=== PATIENT | female | born 1965 | race Caucasian/White ===

== ENCOUNTER 2020-08-25 08:11 | Outpatient (REF) | payer OTHER, SELFPAY ==
[2020-08-25 09:16] LABS: MANUAL DIFF FLAG NO
[2020-08-25 09:19] LABS: Basophils Percent Auto 0.7 % (0-2); Eosinophils Percent Auto 0.7 % (0-4); Hematocrit 37.2 % (37-47); Hemoglobin 12.6 g/dl (12.0-16.0); Imm Gran Abs Auto 0.01 X10*3/uL (0.00-0.03); Imm Gran Pct Auto 0.2 % (0.0-0.4); Lymphocytes Absolute Auto 1.2 X10*3/uL (1.2-4.9); Lymphocytes Percent Auto 29.2 % (20-40); Mean Corpuscular HGB Conc 33.9 g/dl (31.0-35.0); Mean Corpuscular Volume 94.4 fL (80-98); Mean Platelet Volume 10.9 fL (9.4-12.3); Monocytes Absolute Auto 0.3 X10*3/uL (0.1-1.2); Monocytes Percent Auto 7.9 % (2-11); Neutrophils Absolute Auto 2.5 X10*3/uL (2.0-8.3); Neutrophils Percent Auto 61.3 % (45-73); Platelet Count 208 X10*3/uL (160-400); Red Blood Count 3.94 X10*6/uL (4.20-5.50); Red Cell Distribution Width 12.2 % (11.0-16.0); White Blood Count 4.1 X10*3/uL (4.8-10.8)
[2020-08-25 09:20] LABS: Glucose Urine UA NEG (NEG); Leukocyte Esterase Urine NEG (NEG); Nitrite Urine NEG (NEG); Specific Gravity - Urine <= 1.005 (1.005-1.025); Urine Blood TRACE (NEG); Urine Ketones NEG (NEG); Urine Protein NEG (NEG-TRACE)
[2020-08-25 09:24] LABS: Appearance Urine CLEAR; Color Urine YELLOW
[2020-08-25 09:26] LABS: RBC Urine 0-2 /HPF (0); Squamous Epithelial Cell Urine TRACE /LPF; WBC Urine 0 /HPF (0-4)
[2020-08-25 09:46] LABS: Alanine Aminotransferase 18 U/L (0-31); Albumin Level 4.5 g/dL (3.5-5.0); Alkaline Phosphatase 101 U/L (39-117); Anion Gap 13 (12-20); Aspartate Amino Transferase 20 U/L (5-31); Bilirubin Total 0.6 mg/dL (0.0-1.0); Blood Urea Nitrogen 17 mg/dL (9-16); C Reactive Protein 0.08 mg/dL (< or = 0.50); Calcium 9.3 mg/dL (8.4-10.2); Carbon Dioxide 26 mmol/L (22-29); Chloride 104 mmol/L (96-108); Estimated Glomerular Filt Rate > 60; Glucose Random 92 mg/dL (60-115); Potassium 4.1 mmol/l (3.3-5.1); Sodium 139 mmol/L (135-145); Total Protein 7.1 g/dL (6.5-8.0)
[2020-08-25 10:17] LABS: Erythrocyte Sedimentation Rate 5 MM/HR (0-20)
[2020-08-26 12:02] LABS: Complement C3 41 mg/dL (83-193)
[2020-08-26 12:26] LABS: Anti DNA DS Antibody 7 IU/mL
== END 2020-08-25 08:12 | disposition home or self-care (01) ==
LOC: HO.LAB 08:11
PROVIDERS: PCP Family Medicine; Visit Provider Student in an Organized Health Care Education/Training Program
DX: R76.8 Other specified abnormal immunological findings in serum (principal)
CPT/HCPCS: 36415; 80053; 81001; 85025; 85652; 86140; 86160; 86225

== ENCOUNTER 2020-10-12 15:16 | Outpatient (REF) | payer OTHER, SELFPAY ==
--- NOTE | ~2020-10-12 | XR_ITS ---
EXAMINATION: Bilateral knee. CLINICAL INFORMATION: Pain. History of SLE COMPARISON: None TECHNIQUE: 3 views each knee. FINDINGS: Right knee: The tricompartment joint space is minimally reduced. There are small anterior superior patellar enthesophyte. There are no loose bodies or bony erosive changes. No abnormal joint effusion seen. Left knee: There is small anterior superior patellar enthesophyte. Minimal reduction in tricompartment joint space is seen. No loose bodies, bony erosive changes or joint effusion seen. 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 There is a small anterior superior patellar enthesophyte bilaterally
--- NOTE | ~2020-10-12 | XR_ITS ---
EXAMINATION: Bilateral knee. CLINICAL INFORMATION: Pain. History of SLE COMPARISON: None TECHNIQUE: 3 views each knee. FINDINGS: Right knee: The tricompartment joint space is minimally reduced. There are small anterior superior patellar enthesophyte. There are no loose bodies or bony erosive changes. No abnormal joint effusion seen. Left knee: There is small anterior superior patellar enthesophyte. Minimal reduction in tricompartment joint space is seen. No loose bodies, bony erosive changes or joint effusion seen. 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 There is a small anterior superior patellar enthesophyte bilaterally
== END 2020-10-12 15:17 | disposition home or self-care (01) ==
LOC: HO.XRAY 15:16
PROVIDERS: PCP Family Medicine; Visit Provider Student in an Organized Health Care Education/Training Program
DX: M32.9 Systemic lupus erythematosus, unspecified (principal)
CPT/HCPCS: 73562

== ENCOUNTER 2020-10-27 15:51 | Outpatient (REF) | payer OTHER, SELFPAY ==
[2020-10-27 17:36] LABS: Erythrocyte Sedimentation Rate 6 MM/HR (0-20)
[2020-10-27 17:46] LABS: Thyroid Stimulating Hormone 2.38 uIU/mL (0.32-4.0)
[2020-10-28 06:11] LABS: Lyme Abs Screen <0.90 index
[2020-11-01 06:01] LABS: Aldolase 4.5 U/L (<=8.1)
== END 2020-10-27 15:52 | disposition home or self-care (01) ==
LOC: HO.LAB 15:51
PROVIDERS: PCP Family Medicine; Visit Provider Psychiatry & Neurology Neurology
DX: M32.9 Systemic lupus erythematosus, unspecified (principal)
CPT/HCPCS: 36415; 82085; 82550; 84443; 85652; 86618

== ENCOUNTER 2021-01-10 06:44 | Outpatient (REF) | payer OTHER, SELFPAY ==
[2021-01-10 07:48] LABS: MANUAL DIFF FLAG NO
[2021-01-10 07:53] LABS: Glucose Urine UA NEG (NEG); Leukocyte Esterase Urine NEG (NEG); Nitrite Urine NEG (NEG); PH 5.5 (5.0-8.0); Specific Gravity - Urine >= 1.030 (1.005-1.025); Urine Blood TRACE (NEG); Urine Ketones NEG (NEG); Urine Protein NEG (NEG-TRACE)
[2021-01-10 07:57] LABS: Basophils Percent Auto 1.1 % (0-2); Eosinophils Absolute Auto 0.1 X10*3/uL (0.0-0.4); Eosinophils Percent Auto 1.6 % (0-4); Hematocrit 39.3 % (37-47); Lymphocytes Absolute Auto 1.6 X10*3/uL (1.2-4.9); Lymphocytes Percent Auto 41.9 % (20-40); Mean Corpuscular HGB Conc 33.1 g/dl (31.0-35.0); Mean Corpuscular Hemoglobin 31.6 pg (27.0-33.0); Mean Corpuscular Volume 95.6 fL (80-98); Mean Platelet Volume 10.5 fL (9.4-12.3); Monocytes Absolute Auto 0.3 X10*3/uL (0.1-1.2); Monocytes Percent Auto 8.1 % (2-11); Neutrophils Absolute Auto 1.8 X10*3/uL (2.0-8.3); Neutrophils Percent Auto 47.3 % (45-73); Platelet Count 242 X10*3/uL (160-400); Red Blood Count 4.11 X10*6/uL (4.20-5.50); Red Cell Distribution Width 12.1 % (11.0-16.0); White Blood Count 3.7 X10*3/uL (4.8-10.8)
[2021-01-10 08:08] LABS: Appearance Urine CLEAR; Color Urine YELLOW
[2021-01-10 08:09] LABS: Mucus Urine 1+ /LPF; Squamous Epithelial Cell Urine 1+ /LPF; WBC Urine 0 /HPF (0-4)
[2021-01-10 08:12] LABS: Alanine Aminotransferase 29 U/L (0-31); Albumin Level 4.4 g/dL (3.5-5.0); Alkaline Phosphatase 101 U/L (39-117); Anion Gap 12 (12-20); Aspartate Amino Transferase 28 U/L (5-31); Bilirubin Total 0.9 mg/dL (0.0-1.0); Blood Urea Nitrogen 12 mg/dL (9-16); C Reactive Protein 0.05 mg/dL (< or = 0.50); Calcium 9.8 mg/dL (8.4-10.2); Carbon Dioxide 29 mmol/L (22-29); Chloride 107 mmol/L (96-108); Estimated Glomerular Filt Rate > 60; Glucose Random 86 mg/dL (60-115); Potassium 4.6 mmol/L (3.3-5.1); Sodium 143 mmol/L (135-145); Total Protein 6.9 g/dL (6.5-8.0)
[2021-01-10 08:33] LABS: Erythrocyte Sedimentation Rate 5 MM/HR (0-20)
[2021-01-11 14:52] LABS: Complement C3 78 mg/dL (83-193)
[2021-01-13 14:17] LABS: Anti DNA DS Antibody 7 IU/mL
== END 2021-01-10 06:45 | disposition home or self-care (01) ==
LOC: HO.LAB 06:44
PROVIDERS: PCP Family Medicine; Visit Provider Student in an Organized Health Care Education/Training Program
DX: M32.9 Systemic lupus erythematosus, unspecified (principal)
CPT/HCPCS: 36415; 80053; 81001; 85025; 85652; 86140; 86160; 86225

== ENCOUNTER → 2021-01-18 07:56 | Outpatient (BNVA) | payer OTHER, SELFPAY | PROVIDERS: PCP Family Medicine; Visit Provider Student in an Organized Health Care Education/Training Program ==

== ENCOUNTER 2021-01-26 12:36 | Outpatient (REF) | payer OTHER, SELFPAY ==
[2021-01-26 14:51] LABS: Folate 15.9 ng/mL (> or = 4.0); Vitamin B12 245 pg/mL (200-900)
[2021-01-30 16:02] LABS: Vitamin D 25-OH, D2 <4 ng/mL; Vitamin D 25-OH, D3 25 ng/mL; Vitamin D 25-OH, Total 25 ng/mL (30-100)
== END 2021-01-26 12:37 | disposition home or self-care (01) ==
LOC: HO.LAB 12:36
PROVIDERS: PCP Family Medicine; Visit Provider Psychiatry & Neurology Neurology
DX: G43.909 Migraine, unspecified, not intractable, without status migrainosus (principal)
CPT/HCPCS: 36415; 82306; 82607; 82746

== ENCOUNTER → 2021-02-21 15:55 | Outpatient (REF) | payer OTHER, SELFPAY | LOC: HO.SL 15:55 | PROVIDERS: PCP Family Medicine; Visit Provider Psychiatry & Neurology Neurology | DX: G47.30 Sleep apnea, unspecified (principal) | CPT/HCPCS: 95806 ==

== ENCOUNTER → 2021-04-07 12:50 | Outpatient (REF) | payer OTHER, MEDICAID, SELFPAY ==
--- NOTE | 2021-04-07 12:54 | ECG_ITS ---
Hook-up date: 2021-04-07 13:05:00 Duration: 25:51:00 Test Indications: syncope Medications: [id number] QRS complexes 9 Ventricular ectopics which represent <1 % of total QRS comp. 65 Supraventricular ectopics which represent <1 % of total QRS comp. * Paced QRS complexs which represent % of total QRS comp. VENTRICULAR ECTOPY 9 Isolated 0 Bigeminal Cycles 0 Couplets 0 Runs 0 Beats in Runs * Beats LONGEST at * BPM at :: -- * Beats FASTEST at * BPM at :: -- SUPRAVENTRICULAR ECTOPY 65 Isolated 0 Couplets 0 Runs 0 Beats in Runs * Beats LONGEST at * BPM at :: -- * Beats FASTEST at * BPM at :: -- HEART RATES 54 MIN at 06:15:59 2021-04-08 76 AVG 125 MAX at 14:17:52 2021-04-07 LONGEST RR 1.1120 secs at 07:16:54 2021-04-08 S-T LEVELS Channel 1 - 128 mm at 13:05:00 2021-04-07 - 128 mm at 13:05:00 2021-04-07 Channel 2 - 128 mm at 13:05:00 2021-04-07 - 128 mm at 13:05:00 2021-04-07 Channel 3 - 128 mm at 03:22:41 -- - 128 mm at 03:22:41 Basic rhythm Normal sinus rhythm No long pause or profound bradycardia Rare Premature atrial complexes Patient reproted dizziness correlated with NSR Referred By: Stephon Fierro Overread By: ELVA OBRIEN MD
== END ==
LOC: HO.CARD 12:50
PROVIDERS: Visit Provider Psychiatry & Neurology Neurology
DX: R55 Syncope and collapse (principal)
CPT/HCPCS: 93225; 93226

== ENCOUNTER 2021-06-20 13:50 | Outpatient (REF) | payer OTHER, MEDICAID, SELFPAY ==
[2021-06-20 15:34] LABS: Erythrocyte Sedimentation Rate 7 MM/HR (0-20)
[2021-06-24 14:22] LABS: Vitamin D 25-OH, D2 56 ng/mL; Vitamin D 25-OH, D3 14 ng/mL; Vitamin D 25-OH, Total 70 ng/mL (30-100)
== END 2021-06-20 13:51 | disposition home or self-care (01) ==
LOC: HO.LAB 13:50
PROVIDERS: PCP Family Medicine; Visit Provider Psychiatry & Neurology Neurology
DX: G44.209 Tension-type headache, unspecified, not intractable (principal)
CPT/HCPCS: 36415; 82306; 82550; 85652

== ENCOUNTER 2022-01-23 21:24 | Observation (INO) | payer OTHER, MEDICAID, SELFPAY ==
--- NOTE | ~2022-01-23 | CT_ITS ---
EXAMINATION: NONCONTRAST HEAD CT NONCONTRAST CERVICAL SPINE CT INDICATION INFORMATION: Syncope. Hit head. Trauma. COMPARISON: 11/18/2020 TECHNIQUE: Separate noncontrast CT examinations of the head and cervical spine were performed. Coronal and sagittal images were created for each examination at the technologist workstation. This CT examination was performed using dose optimization techniques as appropriate, variously including the following: *Automated exposure control *Adjustment of mA and/or kV according to patient size (this includes techniques or standardized protocols for targeted exams where dose is matched to indication/reason for exam; i.e. extremities or head) *Use of iterative reconstruction technique DLP: 941 mGy-cm FINDINGS: Head: There is no evidence of acute intracranial hemorrhage or territorial infarction. No abnormal mass effect or midline shift is seen. Barney to white matter differentiation is well preserved. No extra-axial fluid collections are identified. No hydrocephalus. No significant volume loss. There is no abnormal attenuation within the brain parenchyma. No acute osseous or soft tissue abnormality. The mastoid air cells and visualized portions of the paranasal sinuses are well aerated. Cervical spine: There is anatomic alignment of the vertebral bodies and posterior elements. The atlantoaxial and atlantooccipital articulations are intact. Vertebral body heights and intervertebral disc spaces are maintained. Right-sided facet fusion at C2-C3. Mild facet arthropathy throughout. No evidence of acute fracture. No prevertebral soft tissue swelling. Visualized portions of the lung apices are unremarkable. The thyroid gland is unremarkable. CT/CT cervical spine wo con IMPRESSION: 1. No acute intracranial finding. 2. No fracture or malalignment of the cervical spine.
--- NOTE | ~2022-01-23 | CT_ITS ---
EXAMINATION: NONCONTRAST HEAD CT NONCONTRAST CERVICAL SPINE CT INDICATION INFORMATION: Syncope. Hit head. Trauma. COMPARISON: 11/18/2020 TECHNIQUE: Separate noncontrast CT examinations of the head and cervical spine were performed. Coronal and sagittal images were created for each examination at the technologist workstation. This CT examination was performed using dose optimization techniques as appropriate, variously including the following: *Automated exposure control *Adjustment of mA and/or kV according to patient size (this includes techniques or standardized protocols for targeted exams where dose is matched to indication/reason for exam; i.e. extremities or head) *Use of iterative reconstruction technique DLP: 941 mGy-cm FINDINGS: Head: There is no evidence of acute intracranial hemorrhage or territorial infarction. No abnormal mass effect or midline shift is seen. Barney to white matter differentiation is well preserved. No extra-axial fluid collections are identified. No hydrocephalus. No significant volume loss. There is no abnormal attenuation within the brain parenchyma. No acute osseous or soft tissue abnormality. The mastoid air cells and visualized portions of the paranasal sinuses are well aerated. Cervical spine: There is anatomic alignment of the vertebral bodies and posterior elements. The atlantoaxial and atlantooccipital articulations are intact. Vertebral body heights and intervertebral disc spaces are maintained. Right-sided facet fusion at C2-C3. Mild facet arthropathy throughout. No evidence of acute fracture. No prevertebral soft tissue swelling. Visualized portions of the lung apices are unremarkable. The thyroid gland is unremarkable. CT/CT head/brain wo con IMPRESSION: 1. No acute intracranial finding. 2. No fracture or malalignment of the cervical spine.
--- NOTE | ~2022-01-23 | US_ITS ---
EXAMINATION: US EXTRACRANIAL CAROTID DUPLEX, BILATERAL CLINICAL INFORMATION: Syncope COMPARISON: None TECHNIQUE: Real-time ultrasound and Doppler techniques (integrating B-mode 2-D vascular images, Doppler spectral analysis and color-flow Doppler imaging) were utilized to interrogate the extracranial carotid arteries, the vertebral arteries and proximal subclavian arteries bilaterally. The degree of stenosis is determined by criteria similar to NASCET. FINDINGS: Right Side: 1. There is no significant atherosclerotic plaque seen in the bifurcation/proximal ICA region. 2. The common carotid artery PSV proximally is 84.1 cm/s and distally 72.7 cm/s. 3. The proximal internal carotid artery velocities are 70.6 cm/s systolic and 26.7 cm/s diastolic. 4. The proximal external carotid artery PSV is 56.6 cm/s. 5. The vertebral artery shows antegrade flow. 6. The subclavian artery waveforms are normal. Left Side: 1. There is no significant atherosclerotic plaque seen in the bifurcation/proximal ICA region. 2. The common carotid artery PSV proximally is 89.2 cm/s and distally 77.0 cm/s. 3. The proximal internal carotid artery velocities are 75.0 cm/s systolic and 24.0 cm/s diastolic. 4. The proximal external carotid artery PSV is 52.6 cm/s. 5. The vertebral artery shows antegrade flow. 6. The subclavian artery waveforms are normal. US/US carotid duplex BI IMPRESSION: 1. RIGHT: Normal right internal carotid artery without atherosclerotic plaque or hemodynamically significant stenosis. 2. LEFT: Normal left internal carotid artery without atherosclerotic plaque or hemodynamically significant stenosis.
[2022-01-23 21:31] VITALS: BP 110/60; PULSE 70; RESP 16; TEMP 36.8; O2SAT 99; BMI 21.7
--- NOTE | 2022-01-23 21:46 | ECG_ITS ---
Test Reason : chest pressure Blood Pressure : / mmHG Vent. Rate : 065 BPM Atrial Rate : 065 BPM P-R Int : 180 ms QRS Dur : 106 ms QT Int : 404 ms P-R-T Axes : 068 090 038 degrees QTc Int : 420 ms Normal sinus rhythm Rightward axis Low voltage QRS Borderline ECG No previous ECGs available Referred By: Everette Chance Electronically Signed By:YANI WILHELM
[2022-01-23 21:56] VITALS: BP 110/60; O2SAT 98
[2022-01-23] MEDS: Acetaminophen 325 MG TABLET 650 MG PO (23:21)
[2022-01-23] MEDS: Ondansetron ODT 4 MG TAB.RAPDIS TRANSLINGU (23:22)
[2022-01-24] VITALS (9 sets, daily range): BP systolic 107–135; BP diastolic 57–74; PULSE 55–64; RESP 14–18; TEMP 36.7–37.2; O2SAT 98–100
[2022-01-24 00:05] LABS: MANUAL DIFF FLAG NO
[2022-01-24 00:06] LABS: Basophils Absolute Auto 0.1 X10*3/uL (0.0-0.2); Basophils Percent Auto 0.9 % (0-2); Eosinophils Absolute Auto 0.1 X10*3/uL (0.0-0.4); Eosinophils Percent Auto 0.9 % (0-4); Hematocrit 33.5 % (37.0-47.0); Hemoglobin 11.5 g/dl (12.0-16.0); Imm Gran Abs Auto 0.01 X10*3/uL (0.00-0.03); Imm Gran Pct Auto 0.2 % (0.0-0.4); Lymphocytes Absolute Auto 2.4 X10*3/uL (1.2-4.9); Lymphocytes Percent Auto 45.5 % (20-40); Mean Corpuscular HGB Conc 34.3 g/dl (31.0-35.0); Mean Corpuscular Hemoglobin 32.7 pg (27.0-33.0); Mean Corpuscular Volume 95.2 fL (80.0-98.0); Mean Platelet Volume 10.6 fL (9.4-12.3); Monocytes Absolute Auto 0.4 X10*3/uL (0.1-1.2); Monocytes Percent Auto 6.6 % (2-11); Neutrophils Absolute Auto 2.4 x10*3/uL (2.0-8.3); Neutrophils Percent Auto 45.9 % (45-73); Platelet Count 198 X10*3/uL (160-400); Red Blood Count 3.52 X10*6/uL (4.20-5.50); Red Cell Distribution Width 12.2 % (11.0-16.0); White Blood Count 5.3 X10*3/uL (4.8-10.8)
[2022-01-24 00:32] LABS: Troponin-I High Sensitivity 6.9 ng/L (<3.5-17.0)
[2022-01-24 00:34] LABS: Alanine Aminotransferase 14 U/L (0-31); Albumin Level 4.2 g/dL (3.5-5.0); Alkaline Phosphatase 107 U/L (39-117); Anion Gap 14 (12-20); Aspartate Amino Transferase 20 U/L (5-31); Bilirubin Total 0.6 mg/dL (0.0-1.0); Carbon Dioxide 20 mmol/L (22-29); Chloride 109 mmol/L (96-108); Creatinine Clr Calc Pharmacy 70.8; Estimated Glomerular Filt Rate > 60; Glucose Random 95 mg/dL (60-115); Potassium 3.5 mmol/L (3.3-5.1); Sodium 139 mmol/L (135-145); Total Protein 6.7 g/dL (6.5-8.0)
[2022-01-24 00:48] LABS: Blood Urea Nitrogen 21 mg/dL (9-16)
--- NOTE | 2022-01-24 01:42 | ED.SYNCOPE ---
HPI - Syncope General Chief Complaint: Syncope Stated Complaint: SYNCOPE Time Seen by Provider: 01/24/22 01:42 Source: patient Mode of arrival: ambulatory Limitations: no limitations History of Present Illness HPI narrative: patient has had frequent episodes of syncope since COVID, too numerous. [facility] Family states she was out for 12 seconds. 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 She is complaining of neck and back pain. patient was complaining of some chest pain and shortness of breath MD complaint: loss of consciousness Onset (ago): hour(s) Prodromal symptoms: lightheaded Related Data Home Medications Medication Instructions Recorded Confirmed albuterol sulfate 90 mcg/actuation 2 puff inhalation Q6H PRN Dyspnea 08/25/20 01/23/22 aerosol inhaler ipratropium 0.5 mg-albuterol 3 mg 3 ml inhalation Q6-8H PRN Dyspnea 08/25/20 01/24/22 (2.5 mg base)/3 mL nebulization soln vcodjux-ikpguswxisjqj-wizxeerx 250 2 tab PO Q6H PRN Dyspnea 10/12/20 01/23/22 mg-250 mg-65 mg tablet (Excedrin Extra Strength) omega-3 fatty acids 1,000 mg 1,000 mg PO DAILY 10/12/20 01/24/22 capsule (Fish Oil Concentrate) valacyclovir 500 mg tablet 500 mg PO DAILY 01/18/21 01/24/22 (Valtrex) lorazepam 0.5 mg tablet (Ativan) 0.5 - 1 mg PO DAILY PRN Anxiety 01/23/22 01/24/22 duloxetine 60 mg capsule,delayed 1 cap PO DAILY 01/24/22 01/24/22 release ergocalciferol (vitamin D2) 1,250 1 cap PO QWEEK 01/24/22 01/24/22 mcg (50,000 unit) capsule meloxicam 15 mg tablet 1 tab PO DAILY 01/24/22 01/24/22 montelukast 10 mg tablet 1 tab PO DAILY 01/24/22 01/24/22 tizanidine 4 mg tablet 1 - 2 tab PO NEEDED muscle spasm 01/24/22 01/24/22 topiramate 100 mg tablet 1 tab PO DAILY 01/24/22 01/24/22 zolmitriptan 5 mg tablet 1 tab PO DAILY PRN Migraine 01/24/22 01/24/22 Headache Previous Rx's Medication Instructions Recorded hydroxychloroquine 200 mg tablet 300 mg PO DAILY #45 tabs 03/15/21 acetaminophen 325 mg tablet 650 mg PO Q6H PRN Pain, Mild (Pain 01/27/22 Scale 1-3) #14 tabs meclizine 12.5 mg tablet 12.5 mg PO TID PRN dizziness #14 01/27/22 tabs Allergies Allergy/AdvReac Type Severity Reaction Status Date / Time amoxicillin Allergy Unknown Unknown Verified 08/05/21 14:22 hydroxyzine Allergy Unknown Unknown Verified 08/05/21 14:22 metoclopramide [Reglan] Allergy Unknown Unknown Verified 08/05/21 14:22 penicillin V Allergy Unknown unknown Verified 08/05/21 14:22 perphenazine Allergy Unknown Unknown Verified 08/05/21 14:22 Rev Eyes Allergy Unknown Unknown Uncoded 08/05/21 14:22 Review of Systems Neurologic: Denies Sensory deficit (Neuro) [facility] Past Medical History Medical History Allergic rhinitis Anxiety Asthma IBS (irritable bowel syndrome) Migraine Osteopenia Morris syndrome Surgical contraindication to deep vein thrombosis (DVT) prophylaxis Surgical History H/O colposcopy with cervical biopsy Family History Family History Mother HTN (hypertension) Arthritis Stroke Pacemaker Father COVID-19 Social History Social History Alcohol intake: never Patient Tobacco Use Status: Never used Tobacco e-Cigarette/Vaping Use: Never Used Advance Directives Date on File: 01/24/22 service: No Current occupational status: unemployed Physical Exam Vital Signs: Vital Signs: Last Vital Signs Temp 97.8 F 01/27/22 12:22 Pulse 64 01/27/22 12:22 Resp 16 01/27/22 12:22 BP 115/58 L 01/27/22 12:22 Pulse Ox 99 01/27/22 12:22 O2 Del Method 01/27/22 12:22 BMI result Body Mass Index 21.7 Const: Other: Thin frail female looking much older than stated age Nutritional Appearance: average body habitus Orientation/consciousness: oriented to person Limitations: no limitations HEENT: Head: Yes normal to inspection Ears: external ears normal General nose exam: Normal external nose present Mouth: Normal oral and palatal mucosa present and oropharynx normal Throat: Yes posterior oropharynx normal Eyes: General: appearance normal, both eyes and all related structures Neck: Other: supple Neck: Yes normal visual inspection Chest: Chest palpation & inspection: normal inspection of the chest Resp: Auscultation: clear to auscultation bilaterally Cardio: Other: 3/6 JUNIOR Jugular venous distension: no JVD Rate: regular rate Rhythm: regular rhythm GI: Inspection: Yes normal to inspection Palpation (GI): Soft to palpation, nontender and No hepatosplenomegaly present Auscultation: normal bowel sounds : General: Yes no CVA tenderness Back/Spine/Pelvis: Back: no CVA tenderness Skin: General skin exam: no rashes or lesions noted Neuro: General: oriented to person Cranial nerves: Yes CN's II-XII intact bilaterally Motor exam (neuro): 5/5 motor strength present throughout Sensory Exam: No Sensory deficit (Neuro) Extrem: General: Yes normal to inspection Psych: Appearance: grossly normal Course Reevaluation(s) Reevaluation #1: preliminary work up including labs, troponin, EKG, head and neck CT all negative. DDimer was also negative will admit for syncope. Time: 03:07 MDM - Syncope Lab Data Result diagrams: 01/24/22 07:48 01/24/22 07:48 Labs: Lab Results 01/24/22 01/24/22 01/24/22 Range/Units 00:01 00:01 00:01 WBC 5.3 (4.8-10.8) X10*3/uL RBC 3.52 L (4.20-5.50) X10*6/uL Hgb 11.5 L (12.0-16.0) g/dl Hct 33.5 L (37.0-47.0) % MCV 95.2 (80.0-98.0) fL MCH 32.7 (27.0-33.0) pg MCHC 34.3 (31.0-35.0) g/dl RDW 12.2 (11.0-16.0) % Plt Count 198 (160-400) X10*3/uL MPV 10.6 (9.4-12.3) fL Immature Gran % (Auto) 0.2 (0.0-0.4) % Neut % (Auto) 45.9 (45-73) % Lymph % (Auto) 45.5 H (20-40) % Haskell % (Auto) 6.6 (2-11) % Eos % (Auto) 0.9 (0-4) % Baso % (Auto) 0.9 (0-2) % Lymph # (Auto) 2.4 (1.2-4.9) X10*3/uL Haskell # (Auto) 0.4 (0.1-1.2) X10*3/uL Eos # (Auto) 0.1 (0.0-0.4) X10*3/uL Baso # (Auto) 0.1 (0.0-0.2) X10*3/uL Abs Immat Gran (auto) 0.01 (0.00-0.03) X10*3/uL Absolute Neuts (auto) 2.4 (2.0-8.3) x10*3/uL Absolute Nucleated RBC 0.000 (0.0-0.012) X10*3/uL Nucleated RBC % (auto) 0.0 (0.0-0.2) /100WBC D-Dimer High Sensitivty NG/ML Sodium 139 (135-145) mmol/L Potassium 3.5 D (3.3-5.1) mmol/L Chloride 109 H (96-108) mmol/L Carbon Dioxide 20 L (22-29) mmol/L Anion Gap 14 (12-20) BUN 21 H (9-16) mg/dL Creatinine 0.83 (0.5-1.4) mg/dL Estim Creat Clear Calc 70.8 Estimated GFR > 60 Random Glucose 95 (60-115) mg/dL Calcium 9.0 D (8.4-10.2) mg/dL Total Bilirubin 0.6 (0.0-1.0) mg/dL AST 20 (5-31) U/L ALT 14 (0-31) U/L Alkaline Phosphatase 107 (39-117) U/L Troponin I High Sens 6.9 (<3.5-17.0) ng/L Total Protein 6.7 (6.5-8.0) g/dL Albumin 4.2 (3.5-5.0) g/dL COVID-19 ([facility]) (Negative) COVID-19 Clin Com 01/24/22 01/24/22 Range/Units 02:00 02:00 WBC (4.8-10.8) X10*3/uL RBC (4.20-5.50) X10*6/uL Hgb (12.0-16.0) g/dl Hct (37.0-47.0) % MCV (80.0-98.0) fL MCH (27.0-33.0) pg MCHC (31.0-35.0) g/dl RDW (11.0-16.0) % Plt Count (160-400) X10*3/uL MPV (9.4-12.3) fL Immature Gran % (Auto) (0.0-0.4) % Neut % (Auto) (45-73) % Lymph % (Auto) (20-40) % Haskell % (Auto) (2-11) % Eos % (Auto) (0-4) % Baso % (Auto) (0-2) % Lymph # (Auto) (1.2-4.9) X10*3/uL Haskell # (Auto) (0.1-1.2) X10*3/uL Eos # (Auto) (0.0-0.4) X10*3/uL Baso # (Auto) (0.0-0.2) X10*3/uL Abs Immat Gran (auto) (0.00-0.03) X10*3/uL Absolute Neuts (auto) (2.0-8.3) x10*3/uL Absolute Nucleated RBC (0.0-0.012) X10*3/uL Nucleated RBC % (auto) (0.0-0.2) /100WBC D-Dimer High Sensitivty < 150 NG/ML Sodium (135-145) mmol/L Potassium (3.3-5.1) mmol/L Chloride (96-108) mmol/L Carbon Dioxide (22-29) mmol/L Anion Gap (12-20) BUN (9-16) mg/dL Creatinine (0.5-1.4) mg/dL Estim Creat Clear Calc Estimated GFR Random Glucose (60-115) mg/dL Calcium (8.4-10.2) mg/dL Total Bilirubin (0.0-1.0) mg/dL AST (5-31) U/L ALT (0-31) U/L Alkaline Phosphatase (39-117) U/L Troponin I High Sens (<3.5-17.0) ng/L Total Protein (6.5-8.0) g/dL Albumin (3.5-5.0) g/dL COVID-19 ([facility]) Negative (Negative) COVID-19 Clin Com See Note Imaging Data Head CT and cervical spine CT: Radiologist's impression: FINDINGS: Head: There is no evidence of acute intracranial hemorrhage or territorial infarction. No abnormal mass effect or midline shift is seen. Barney to white matter differentiation is well preserved. No extra-axial fluid collections are identified. No hydrocephalus. No significant volume loss. There is no abnormal attenuation within the brain parenchyma. No acute osseous or soft tissue abnormality. The mastoid air cells and visualized portions of the paranasal sinuses are well aerated. Cervical spine: There is anatomic alignment of the vertebral bodies and posterior elements. The atlantoaxial and atlantooccipital articulations are intact. Vertebral body heights and intervertebral disc spaces are maintained. Right-sided facet fusion at C2-C3. Mild facet arthropathy throughout. No evidence of acute fracture. No prevertebral soft tissue swelling. Visualized portions of the lung apices are unremarkable. The thyroid gland is unremarkable. CT/CT head/brain wo con IMPRESSION: ? 1. No acute intracranial finding. 2. No fracture or malalignment of the cervical spine. Discharge Plan Discharge Clinical Impression: Syncope and collapse Patient Disposition: Admitted As Inpatient Interventions: Admission Worksheet (ED) Last Done: 01/25/22 13:10 Discharge Date/Time: 01/27/22 14:58
--- NOTE | 2022-01-24 01:43 | PC.NURSE ---
Pt presented to ER after a syncopal episode at home. Daughter was in the other room, stated the pt was not unconscious for more than 10-12 seconds. Pt hit her head when she fell, she is still lightheaded and nauseas. Pt states she has had similar episodes before. Pt has a history of forgetfulness, daughter states pt has been falling more often and has been getting more confused. Pt is alert and oriented but is slow to respond or come up with answers. Daughter and granddaughter are present with the pt.
[2022-01-24 02:15] LABS: D Dimer High Sensitivity < 150 NG/ML
[2022-01-24 02:20] LABS: COVID-19 Test Negative (Negative)
--- NOTE | 2022-01-24 06:02 | P.HPHOSP_ITS ---
History of Present Illness Date of Service: 01/24/22 Chief Complaint: Syncope This is a 56-year-old female with past medical history of lupus, Sjogren's, Raynaud's, fibromyalgia, asthma, and history of syncopal episodes who presents to the hospital after syncope at home. Her daughter at bedside gives most of the history as patient is sleeping but wakes up and answers questions appropriately. According to the daughter they were at home with the patient, laughing and having a good time when patient got up to go to the kitchen to get ice cream, with sudden the heard a drop and found her on the floor unconscious. This lasted about 10-15 seconds, patient came about and was not confused, no seizure-like activity. No loss of bowel or bladder control. Patient herself reports that she was dizzy prior to passing out, she also felt palpitations. Otherwise denies any chest pain, no shortness of breath. Daughter reports that prior to this syncope patient has been feeling weak and under a lot of stress, has been taking care of her elderly sick mother. Reports that she has history of syncope, related to stressful situations. Patient currently reports a splitting headache, she does report hitting the back of her head upon falling, reports no change in vision, no no weakness numbness or tingling in her extremities or face. No chest pain, no palpitations at this time, no abdominal pain, no shortness of breath, no nausea or vomiting, no diarrhea constipation, no urinary symptoms and no lower extremity edema. On arrival to the ED patient hemodynamically stable with no significant abnormal vitals Labs are significant for WBC count of 5.3, hemoglobin of 11.5, hematocrit 33.5, otherwise unremarkable, EKG reviewed by me showed no significant abnormality Head CT shows no acute intracranial findings Patient will be admitted for further workup Review of Systems Review of Systems: Yes all other systems are reviewed and are negative [facility] Medical History Allergic rhinitis Anxiety Asthma IBS (irritable bowel syndrome) Migraine Osteopenia Morris syndrome Surgical contraindication to deep vein thrombosis (DVT) prophylaxis Family History Mother HTN (hypertension) Arthritis Stroke Pacemaker Father COVID-19 Surgical History H/O colposcopy with cervical biopsy Social History Alcohol intake: never Patient Tobacco Use Status: Never used Tobacco e-Cigarette/Vaping Use: Never Used Use of substances other than those prescribed or required for medical reasons: No Advance Directives: No Patient : No Meds Allergies Allergy/AdvReac Type Severity Reaction Status Date / Time amoxicillin Allergy Unknown Unknown Verified 08/05/21 14:22 hydroxyzine Allergy Unknown Unknown Verified 08/05/21 14:22 metoclopramide [Reglan] Allergy Unknown Unknown Verified 08/05/21 14:22 penicillin V Allergy Unknown unknown Verified 08/05/21 14:22 perphenazine Allergy Unknown Unknown Verified 08/05/21 14:22 Rev Eyes Allergy Unknown Unknown Uncoded 08/05/21 14:22 Active Medications: Current Medications Acetaminophen (Acetaminophen 325 Mg Tablet) 650 mg PO Q6H PRN PRN Reason: Pain, Mild (Pain Scale 1-3) Albuterol Sulfate (Albuterol Sulfate 90 Mcg 8 Gm Inhaler) 2 puff INHALE Q6H PRN PRN Reason: Dyspnea Albuterol/Ipratropium (Albuterol/Iprat 2.5/0.5mg 3 Ml Ampul.Neb) 3 ml INHALE Q6H PRN PRN Reason: Dyspnea Docusate Sodium (Docusate Sodium 100 Mg Capsule) 100 mg PO DAILY PRN PRN Reason: Constipation Duloxetine HCl (Duloxetine Hcl 60 Mg Capsule.Dr) 60 mg PO DAILY [facility] Fluticasone/Vilanterol (Fluticasone/Vilanterol 200/25 Blst.W.Dev) 1 puff INHALE DAILY [facility] Hydroxychloroquine Sulfate (Hydroxychloroquine Sulfate 200 Mg Tablet) 300 mg PO DAILY [facility] Lorazepam (Lorazepam 0.5 Mg Tablet) 0.5 - 1 mg PO DAILY PRN PRN Reason: Anxiety Non-Formulary Medication (Hngtxyr-Gyfhnnpofhlmf-Pjtilxnj [Excedrin Extra Strength]) 2 tab PO Q6H PRN PRN Reason: Dyspnea Non-Formulary Medication (Diclofenac Sodium [Voltaren]) 2 gm TOPICAL QID [facility] Non-Formulary Medication ([place]-3 Fatty Acids [Fish Oil Concentrate]) 1,000 mg PO DAILY [facility] Ondansetron HCl (Ondansetron Hcl 4 Mg/2 Ml Vial) 4 mg IVPUSH Q8H PRN PRN Reason: Nausea and Vomiting Pharmacy Consult (Consult Rx Perform Med Rec) 1 each MISCELLANE ONCE PRN PRN Reason: Consult order Sodium Chloride (0.9 % Sodium Chloride Flush 3 Ml Syringe) 3 ml IVFLUSH QSHIFT [facility] Topiramate (Topiramate 100 Mg Tablet) 100 mg PO DAILY [facility] Topiramate (Topiramate 100 Mg Tablet) 200 mg PO BEDTIME [facility] Valacyclovir HCl (Valacyclovir Hcl 500 Mg Tablet) 500 mg PO DAILY [facility] Home Medications Medication Instructions Recorded Confirmed Last Taken Type albuterol sulfate 90 mcg/actuation 2 puff inhalation Q6H PRN Dyspnea 08/25/20 01/23/22 Unknown History aerosol inhaler ipratropium 0.5 mg-albuterol 3 mg 3 ml inhalation Q6-8H PRN Dyspnea 08/25/20 01/23/22 Unknown History (2.5 mg base)/3 mL nebulization soln mometasone-formoterol HFA 200 2 puff inhalation BID 08/25/20 01/23/22 Unknown History mcg-5 mcg/actuation aerosol inhaler pelzzth-wfrvzvuxctxyi-kmqufzzw 250 2 tab PO Q6H PRN Dyspnea 10/12/20 01/23/22 Unknown History mg-250 mg-65 mg tablet (Excedrin Extra Strength) omega-3 fatty acids 1,000 mg 1,000 mg PO DAILY 10/12/20 01/23/22 Unknown History capsule (Fish Oil Concentrate) valacyclovir 500 mg tablet 500 mg PO DAILY 01/18/21 01/23/22 Unknown History (Valtrex) duloxetine 20 mg capsule,delayed 60 mg PO DAILY 01/23/22 01/23/22 Unknown History release lorazepam 0.5 mg tablet (Ativan) 0.5 - 1 mg PO DAILY PRN Anxiety 01/23/22 01/23/22 Unknown History topiramate 50 mg tablet See Rx Instructions .Route .COMPLEX 01/23/22 01/23/22 Unknown History Physical Exam Vital Signs and Narrative: Vital Signs: Last Vital Signs Temp 98.2 F 01/23/22 21:31 Pulse 57 01/24/22 01:34 Resp 14 01/24/22 05:22 BP 135/74 01/24/22 01:34 Pulse Ox 100 01/24/22 01:34 O2 Del Method 01/24/22 01:34 BMI result Body Mass Index 21.7 Const: General: cooperative and no acute distress Orientation/consciousness: patient oriented x3 Eyes: General: appearance normal, both eyes and all related structures Resp: Effort & Inspection: normal respiratory effort Auscultation: clear to auscultation bilaterally Cardio: Rate: regular rate Rhythm: regular rhythm GI: Palpation (GI): Soft to palpation Auscultation: normal bowel sounds Skin: General skin exam: no rashes or lesions noted Neuro: General: patient oriented x3 Cognition (Neuro): normal cognition Extrem: Other: No neurological deficits noted General: Yes normal to inspection and Yes no pedal edema Results Labs CBC and Chem 7: 01/24/22 00:01 01/24/22 00:01 Labs: Laboratory Results - last 24 hr 01/24/22 01/24/22 01/24/22 00:01 00:01 00:01 MCV 95.2 MCH 32.7 MCHC 34.3 RDW 12.2 Plt Count 198 MPV 10.6 Immature Gran % (Auto) 0.2 Neut % (Auto) 45.9 Lymph % (Auto) 45.5 H Donley % (Auto) 6.6 Eos % (Auto) 0.9 Baso % (Auto) 0.9 Lymph # (Auto) 2.4 Donley # (Auto) 0.4 Eos # (Auto) 0.1 Baso # (Auto) 0.1 Abs Immat Gran (auto) 0.01 Absolute Neuts (auto) 2.4 Absolute Nucleated RBC 0.000 Nucleated RBC % (auto) 0.0 D-Dimer High Sensitivty Anion Gap 14 Estim Creat Clear Calc 70.8 Estimated GFR > 60 Random Glucose 95 Calcium 9.0 D Total Bilirubin 0.6 AST 20 ALT 14 Alkaline Phosphatase 107 Troponin I High Sens 6.9 Total Protein 6.7 Albumin 4.2 COVID-19 ([facility]) COVID-19 Clin Com 01/24/22 01/24/22 02:00 02:00 MCV MCH MCHC RDW Plt Count MPV Immature Gran % (Auto) Neut % (Auto) Lymph % (Auto) Donley % (Auto) Eos % (Auto) Baso % (Auto) Lymph # (Auto) Donley # (Auto) Eos # (Auto) Baso # (Auto) Abs Immat Gran (auto) Absolute Neuts (auto) Absolute Nucleated RBC Nucleated RBC % (auto) D-Dimer High Sensitivty < 150 Anion Gap Estim Creat Clear Calc Estimated GFR Random Glucose Calcium Total Bilirubin AST ALT Alkaline Phosphatase Troponin I High Sens Total Protein Albumin COVID-19 ([facility]) Negative COVID-19 Clin Com See Note Imaging Radiologist's Impressions: Impressions Cervical Spine CT 01/24/22 02:20 IMPRESSION: 1. No acute intracranial finding. 2. No fracture or malalignment of the cervical spine. Head CT 01/24/22 02:20 IMPRESSION: 1. No acute intracranial finding. 2. No fracture or malalignment of the cervical spine. Assessment and Plan (1) Syncope and collapse: Status: Acute Plan 56-year-old female with past medical history of lupus, Sjogren's, Raynaud's and previous syncopal episodes presents to the hospital after syncopal episode # syncope - neurogenic versus vasovagal versus cardiogenic less likely - reports history of syncope related to stress - daughter reports the patient has been under lot of stress - occurred after patient got up from a seated position - will obtain orthostatic vitals, echocardiogram as patient reported palpitations and dizziness - of note patient had workup for syncope with a 24 hour Holter monitor in 2020 which was negative for any significant abnormality # lupus - continue home medication # history of migraines - has headache - continue Topamax - Excedrin, Tylenol, oxycodone x1 DVT prophylaxis: Early ambulation Quality Stroke Does the patient have a stroke diagnosis?: No VTE Prior VTE?: No VTE Risk Level:: Medical - low VTE Device Contraindication: Treatment Not Indicated VTE Drug Contraindication: Treatment Not Indicated
[2022-01-24] MEDS: oxyCODONE HCl Immed Release 5 MG TABLET PO (06:33)
[2022-01-24] MEDS: ondansetron HCL 4 MG/2 ML VIAL IVPUSH ×2 (06:34→09:37)
--- NOTE | 2022-01-24 07:00 | CA_ITS ---
Transthoracic Echocardiogram Patient (Last, First, Middle): Marlen Soares, Gender: Female Date of : 1965 Age: 56 Procedure Date: 01/24/2022 Procedure Type: Transthoracic Echocardiogram Location: ER Height: 167.64 cm Weight: 61.24 kg BSA: 1.69 m2 Heart Rate: bpm BP: 116 / 61 mmHg Cellar Pumper: Referring MD: Vin Juárez MD Embroidery Operator: Favian Canas MD Symptoms: syncope Study Quality: Good ECG Rhythm: Sinus Conclusions: - The left ventricular systolic function is normal. The calculated ejection fraction is 64% by biplane method. - No obvious valvular pathology seen on this study. Findings Left Ventricle Normal left ventricular cavity size. There is normal left ventricular wall thickness. The left ventricular systolic function is normal. The calculated ejection fraction is 64% by biplane method. There is no evidence of regional wall motion abnormalities. Diastolic function is normal for age. Right Ventricle Normal right ventricular cavity size and systolic function. Atria Both atria are normal in size. Aortic Valve There is a normal trileaflet aortic valve. There is no aortic valve stenosis. There is no aortic valve regurgitation. Mitral Valve The mitral valve appears normal. There is trace mitral valve regurgitation. There is no mitral valve stenosis. Pulmonic Valve There is trace pulmonic valve regurgitation. Tricuspid Valve Normal tricuspid valve structure. There is mild tricuspid valve regurgitation. The pulmonary artery systolic pressure is normal. Great Vessels The aortic annulus, sinuses of valsalva, and asc aorta are normal in size. Venous The inferior vena cava is normal in size and collapses greater than 50% with inspiration. Pericardium/Pleural There is no evidence of pericardial effusion. Prior Study Comparison No prior study available for comparison. Recommendations, Care & Conclusions No obvious valvular pathology seen on this study. Measurements 2D Linear Measurements IVSd: 0.89 0.6-0.9/0.6-1.0 cm LVIDd: 4.82 3.9-5.3/4.2-5.9 cm LVIDd Index: 2.85 2.4-3.2/2.2-3.1 cm/m2 LVIDs: 2.89 2.0-3.6 cm LVPWd: 1.02 0.7-1.1 cm Ao Root: 3.70 2.1-3.5 cm LA Diam: 3.20 2.7-3.8/3.0-4.0 cm LAIDs Index: 1.89 1.5-2.3 cm/m2 LV Mass: 200.84 67-162/88-224 g LV Mass Index: 118.84 43-95/49-115 g/m2 LVOT Diam: 2.70 3.0+(-)1.3 cm 2D Systolic Function EF 4C: 68.70 >55% EF 2C: 58.50 >55% EF BiP: 64.30 >55% Mitral Valve MV Pk E: 0.57 MV PK A: 0.66 MV Decel Time: 167.00 E/A: 0.90 E'Lateral: 11.10 E'Medial: 7.62 E/E' Med: 7.50 E/E' Lat: 5.10 PHT: 49.00 MVA PHT: 4.49 Decel [place]: 3.40 Aortic Valve AoV Pk Tad: 1.25 AoV Mn Tad: 0.71 AoV VTI: 0.27 AoV Pk Grad: 6.00 Aov Mn Grad: 3.00 ELLYN Cont.VTI: 4.94 LVOT LVOT Pk Tad: 1.03 LVOT Mn Tad: 0.61 LVOT VTI: 0.23 LVOT Pk Grad: 4.00 LVOT Mn Grad: 2.00 LVOT Diam: 2.70 LVOT Area: 5.73 Diastolic Function MV Pk E: 0.57 MV Pk A: 0.66 E/A: 0.90 E'Medial: 7.62 E/E' Med: 7.50 E' Laterial: 11.10 E/E' Lat: 5.10 Right Ventricle TAPSE (mm): 29.00 Tricuspid Valve TR Pk Tad: 2.22 TR Pk Grad: 20.00 RA Press: 3.00 RVSP: 23.00 Great Vessels Aorta Ao Root-2D: 3.70 2.0-3.7 cm Ao Asc: 3.30 2.1-3.4 cm Pulmonary Valve PV Pk Tad: 0.90 Peak PV Grad: 3.00 Updated in Other Vendor System with Status of Final Favian Canas MD electronically signed on 01/24/2022 4:28:56 PM with status of Final
[2022-01-24 07:55] LABS: MANUAL DIFF FLAG NO
[2022-01-24 07:59] LABS: Basophils Percent Auto 0.7 % (0-2); Eosinophils Percent Auto 0.3 % (0-4); Hematocrit 33.2 % (37.0-47.0); Hemoglobin 11.4 g/dl (12.0-16.0); Imm Gran Abs Auto 0.01 X10*3/uL (0.00-0.03); Imm Gran Pct Auto 0.2 % (0.0-0.4); Lymphocytes Percent Auto 16.3 % (20-40); Mean Corpuscular HGB Conc 34.3 g/dl (31.0-35.0); Mean Corpuscular Hemoglobin 32.6 pg (27.0-33.0); Mean Corpuscular Volume 94.9 fL (80.0-98.0); Mean Platelet Volume 10.7 fL (9.4-12.3); Monocytes Absolute Auto 0.3 X10*3/uL (0.1-1.2); Monocytes Percent Auto 4.7 % (2-11); Neutrophils Absolute Auto 4.8 x10*3/uL (2.0-8.3); Neutrophils Percent Auto 77.8 % (45-73); Platelet Count 189 X10*3/uL (160-400); White Blood Count 6.1 X10*3/uL (4.8-10.8)
--- NOTE | 2022-01-24 08:02 | ECG_ITS ---
Test Reason : SYNCOPE Blood Pressure : / mmHG Vent. Rate : 052 BPM Atrial Rate : 052 BPM P-R Int : 210 ms QRS Dur : 108 ms QT Int : 478 ms P-R-T Axes : 077 092 066 degrees QTc Int : 444 ms Sinus bradycardia with 1st degree A-V block Rightward axis Borderline ECG When compared with ECG of 23-JAN-2022 21:46, DE interval has increased Referred By: Everette Chance Electronically Signed By:YANI WILHELM
[2022-01-24 08:09] LABS: Anion Gap 12 (12-20); Blood Urea Nitrogen 20 mg/dL (9-16); Calcium 9.1 mg/dL (8.4-10.2); Carbon Dioxide 24 mmol/L (22-29); Chloride 108 mmol/L (96-108); Creatinine Clr Calc Pharmacy 77.4; Estimated Glomerular Filt Rate > 60; Glucose Random 125 mg/dL (60-115); Potassium 3.8 mmol/L (3.3-5.1); Sodium 140 mmol/L (135-145)
--- NOTE | 2022-01-24 09:37 | PC.NURSE ---
pt activity vomiting, keeps reporting having a headache, pharmacy at bedside going over with the pt on her medications, there is some confusion with the current mar according to the pt, will hold off to medicate the pt until the med rec is straightened out
--- NOTE | 2022-01-24 09:52 | PHA.MEDREC ---
Pharmacy Consult ? Medication Reconciliation Pharmacy has completed the medication reconciliation. Medications extracted from prior claims and the patient themselves. I discontinued breo as patient admits to not taking it for a long time .
--- NOTE | 2022-01-24 10:48 | MHC.CM.PN ---
PT REPORTS SHE CURRENTLY LIVES ALONE BUT PLANS TO MOVE WITH HER DAUGHTER SOON SHE REPORTS HER DAUGHTER IS HER OPERATIONS SUPPORT MANAGER 17 HOURS PER WEEK, BUT IS AT HER HOME DAILY PT DENIES USE OF DME PT IS NOT COVID-19 VACCINATED PCP: ANU [id number] PT DECLINES TO COMPLETE A HCP CURRENT DC PLAN IS HOME WITH RESUMPTION OF OPERATIONS SUPPORT MANAGER SERVICES DAUGHTER TO TRANSPORT
[2022-01-24] MEDS: 0.9 % Sodium Chloride Flush 3 ML SYRINGE IVFLUSH (11:04)
--- NOTE | 2022-01-24 11:14 | PC.NURSE ---
pt is refusing to take her scheduled meds for this morning because she is very upset that we are not addressing her headache, pt is looking for her zolmitriptan pharmacy was at bedside speaking to pt about her medications earlier, also reached out to dr case to please come see the pt
--- NOTE | 2022-01-24 12:12 | PC.NURSE ---
ELECTRONIC EQUIPMENT MAINT TECH AT BEDSIDE TO TAKE THE PT TO MRI BUT PT IS REFUSING TO HAVE IT DONE
[2022-01-24] MEDS: SUMAtriptan succinate 100 MG TABLET PO ×2 (13:31→21:27)
--- NOTE | 2022-01-24 13:38 | PC.NURSE ---
Pt continuing to refuse med, only excepting Imitrex. Pt also declining to answer evaluation questions
--- NOTE | 2022-01-24 15:48 | P.CNNE_ITS ---
History of Present Illness Data of Consult Service Date: 01/24/22 Primary Care Provider: Amador Mackenzie MD [facility] Reason for consult: Syncope This is a 56-year-old female with past medical history of lupus, Sjogren's, Raynaud's, fibromyalgia, asthma, and history of syncopal episode on 10/11/20 presents to the hospital after another syncope at home. According to the daughter she was fine till she got up to go to the kitchen to get ice cream, when she suddenly heard her fall and found her on the floor unconscious lasting 10-15 seconds. She came to and was not confused, no seizure-like activity.? No loss of bowel or bladder control.? Patient herself reports that she was dizzy prior to passing out, she also felt palpitations.? Otherwise denies any chest pain, no shortness of breath.? Patient currently reports a splitting headache, she does report hitting the back of her head upon falling, reports no change in vision, no no weakness numbness or tingling in her extremities or face.? No chest pain, no palpitations at this time, no abdominal pain, no shortness of breath, no nausea or vomiting, no diarrhea constipation, no urinary symptoms and no lower extremity edema.? In the past she reports periods of rapid tachycardia. She had a single syncopal episode on 10/11/20 while helping her daughter move. She was out for less than a minute and came out of it without any postictal confusion no injuries Previous brain MRI andEEG and Holter done in 2020 were normal. Review of Systems Review of Systems: Yes all other systems are reviewed and are negative FORMERLY [facility], [facility] Past Medical History Medical History Allergic rhinitis Anxiety Asthma IBS (irritable bowel syndrome) Migraine Osteopenia Morris syndrome Surgical contraindication to deep vein thrombosis (DVT) prophylaxis Family History Family History Mother HTN (hypertension) Arthritis Stroke Pacemaker Father COVID-19 Surgical History Surgical History H/O colposcopy with cervical biopsy Social History Social History Alcohol intake: never Patient Tobacco Use Status: Never used Tobacco e-Cigarette/Vaping Use: Never Used Use of substances other than those prescribed or required for medical reasons: No Advance Directives: Yes Advance Directives on File: Yes Advance Directives Date on File: 01/24/22 Patient : No service: No Current occupational status: unemployed Meds Allergies Allergy/AdvReac Type Severity Reaction Status Date / Time amoxicillin Allergy Unknown Unknown Verified 08/05/21 14:22 hydroxyzine Allergy Unknown Unknown Verified 08/05/21 14:22 metoclopramide [Reglan] Allergy Unknown Unknown Verified 08/05/21 14:22 penicillin V Allergy Unknown unknown Verified 08/05/21 14:22 perphenazine Allergy Unknown Unknown Verified 08/05/21 14:22 Rev Eyes Allergy Unknown Unknown Uncoded 08/05/21 14:22 Active Medications: Current Medications Acetaminophen (Acetaminophen 325 Mg Tablet) 650 mg PO Q6H PRN PRN Reason: Pain, Mild (Pain Scale 1-3) Acetaminophen/Butalbital/Caffeine (Butalb/Acetamin/Caff 50/325/40 Tablet) 1 tab PO Q4H PRN PRN Reason: Headache Albuterol Sulfate (Albuterol Sulfate 90 Mcg 8 Gm Inhaler) 2 puff INHALE Q6H PRN PRN Reason: Dyspnea Albuterol/Ipratropium (Albuterol/Iprat 2.5/0.5mg 3 Ml Ampul.Neb) 3 ml INHALE Q6H PRN PRN Reason: Dyspnea Celecoxib (Celecoxib 200 Mg Capsule) 200 mg PO DAILY [facility] Last Admin: 01/24/22 13:36 Dose: Not Given Docusate Sodium (Docusate Sodium 100 Mg Capsule) 100 mg PO DAILY PRN PRN Reason: Constipation Duloxetine HCl (Duloxetine Hcl 60 Mg Capsule.Dr) 60 mg PO DAILY [facility] Last Admin: 01/24/22 13:34 Dose: Not Given Enoxaparin Sodium (Enoxaparin Sodium 40 Mg/0.4 Ml Syringe) 40 mg SUBCUT Q24H [facility] Last Admin: 01/24/22 13:33 Dose: Not Given Ergocalciferol (Ergocalciferol (Vitamin D2) 1,250 Mcg Capsule) 1,250 mcg PO Mo [facility] Fluticasone/Vilanterol (Fluticasone/Vilanterol 200/25 Blst.W.Dev) 1 puff INHALE DAILY [facility] Last Admin: 01/24/22 10:58 Dose: Not Given Hydroxychloroquine Sulfate (Hydroxychloroquine Sulfate 200 Mg Tablet) 300 mg PO DAILY [facility] Last Admin: 01/24/22 13:34 Dose: Not Given Lactated Ringer's (Lr) 1,000 mls @ 100 mls/hr IVCONT .Q10H [facility] Lorazepam (Lorazepam 0.5 Mg Tablet) 0.5 - 1 mg PO DAILY PRN PRN Reason: Anxiety Montelukast Sodium (Montelukast Sodium 10 Mg Tablet) 10 mg PO DAILY [facility] Ondansetron HCl (Ondansetron Hcl 4 Mg/2 Ml Vial) 4 mg IVPUSH Q8H PRN PRN Reason: Nausea and Vomiting Last Admin: 01/24/22 09:37 Dose: 4 mg Pantoprazole Sodium (Pantoprazole Sodium 40 Mg/10 Ml Vial) 40 mg IVPUSH DAILY@0630 [facility] Last Admin: 01/24/22 13:35 Dose: Not Given Pharmacy Consult (Consult Rx Perform Med Rec) 1 each MISCELLANE ONCE PRN PRN Reason: Consult order Sodium Chloride (0.9 % Sodium Chloride Flush 3 Ml Syringe) 3 ml IVFLUSH QSHIFT [facility] Last Admin: 01/24/22 11:04 Dose: 3 ml Sumatriptan Succinate (Sumatriptan Succinate 100 Mg Tablet) 100 mg PO DAILY PRN PRN Reason: Migraine Headache Last Admin: 01/24/22 13:31 Dose: 100 mg Topiramate (Topiramate 100 Mg Tablet) 100 mg PO DAILY [facility] Last Admin: 01/24/22 13:35 Dose: Not Given Topiramate (Topiramate 100 Mg Tablet) 200 mg PO BEDTIME [facility] Valacyclovir HCl (Valacyclovir Hcl 500 Mg Tablet) 500 mg PO DAILY [facility] Last Admin: 01/24/22 13:35 Dose: Not Given Home Medications Medication Instructions Recorded Confirmed Last Taken Type albuterol sulfate 90 mcg/actuation 2 puff inhalation Q6H PRN Dyspnea 08/25/20 01/23/22 Unknown History aerosol inhaler ipratropium 0.5 mg-albuterol 3 mg 3 ml inhalation Q6-8H PRN Dyspnea 08/25/20 01/24/22 Unknown History (2.5 mg base)/3 mL nebulization soln [id number] 250 2 tab PO Q6H PRN Dyspnea 10/12/20 01/23/22 Unknown History mg-250 mg-65 mg tablet (Excedrin Extra Strength) omega-3 fatty acids 1,000 mg 1,000 mg PO DAILY 10/12/20 01/24/22 Unknown History capsule (Fish Oil Concentrate) valacyclovir 500 mg tablet 500 mg PO DAILY 01/18/21 01/24/22 Unknown History (Valtrex) lorazepam 0.5 mg tablet (Ativan) 0.5 - 1 mg PO DAILY PRN Anxiety 01/23/22 01/24/22 01/23/22 History duloxetine 60 mg capsule,delayed 1 cap PO DAILY 01/24/22 01/24/22 Unknown History release ergocalciferol (vitamin D2) 1,250 1 cap PO QWEEK 01/24/22 01/24/22 Unknown History mcg (50,000 unit) capsule meloxicam 15 mg tablet 1 tab PO DAILY 01/24/22 01/24/22 Unknown History montelukast 10 mg tablet 1 tab PO DAILY 01/24/22 01/24/22 Unknown History tizanidine 4 mg tablet 1 - 2 tab PO NEEDED muscle spasm 01/24/22 01/24/22 Unknown History topiramate 100 mg tablet 1 tab PO DAILY 01/24/22 01/24/22 Unknown History zolmitriptan 5 mg tablet 1 tab PO DAILY PRN Migraine 01/24/22 01/24/22 01/23/22 History Headache Physical Exam Vital Signs: Vital Signs: Last Vital Signs Temp 98.2 F 01/23/22 21:31 Pulse 55 01/24/22 12:15 Resp 14 01/24/22 12:15 BP 119/62 01/24/22 12:15 Pulse Ox 98 01/24/22 12:15 O2 Del Method 01/24/22 12:15 BMI result Body Mass Index 21.7 Const: General: cooperative and no acute distress Orientation/consciousness: patient oriented x3 Eyes: General: appearance normal, both eyes and all related structures Resp: Effort & Inspection: normal respiratory effort Auscultation: clear to auscultation bilaterally Cardio: Rate: regular rate Rhythm: regular rhythm GI: Palpation (GI): Soft to palpation Auscultation: normal bowel sounds Skin: General skin exam: no rashes or lesions noted Neuro: Other: normal nonfocal neurological examination General: patient oriented x3 Cognition (Neuro): normal cognition Extrem: Other: No neurological deficits noted General: Yes normal to inspection and Yes no pedal edema Results Labs CBC & Chem 7: 01/24/22 07:48 01/24/22 07:48 Labs: Short CBC 01/24/22 01/24/22 Range/Units 00:01 07:48 WBC 5.3 6.1 (4.8-10.8) X10*3/uL Hgb 11.5 L 11.4 L (12.0-16.0) g/dl Hct 33.5 L 33.2 L (37.0-47.0) % Plt Count 198 189 (160-400) X10*3/uL BMP 01/24/22 01/24/22 00:01 07:48 Sodium 139 140 Potassium 3.5 D 3.8 Chloride 109 H 108 Carbon Dioxide 20 L 24 BUN 21 H 20 H Creatinine 0.83 0.76 Calcium 9.0 D 9.1 Liver Function 01/24/22 Range/Units 00:01 Total Bilirubin 0.6 (0.0-1.0) mg/dL AST 20 (5-31) U/L ALT 14 (0-31) U/L Alkaline Phosphatase 107 (39-117) U/L Albumin 4.2 (3.5-5.0) g/dL Assessment and Plan (1) Syncope and collapse: Status: Acute probably cardiogenic syncope. One previous episode similarly in September 2020 for less than a minute associated with palpitations similar to this episode. Pre vious neurological workup as described above has been negative and a previous 24-hour Holter was negative. Recommendation long-term cardiac monitoring possible placement of a Link. No further neurological workup necessary Plan 56-year-old female with past medical history of lupus, Sjogren's, Raynaud's and previous syncopal episodes presents to the hospital after syncopal episode # syncope - neurogenic versus vasovagal versus cardiogenic less likely - reports history of syncope related to stress - daughter reports the patient has been under lot of stress - occurred after patient got up from a seated position - will obtain orthostatic vitals, echocardiogram as patient reported palpitations and dizziness - of note patient had workup for syncope with a 24 hour Holter monitor in 2020 which was negative for any significant abnormality # lupus - continue home medication # history of migraines - has headache - continue Topamax - Excedrin, Tylenol, oxycodone x1 DVT prophylaxis: Early ambulation Procedures Date of Service Date of Service: 01/24/22
--- NOTE | 2022-01-24 17:20 | P.PNIM_ITS ---
Subjective Subjective Date of Service: 01/24/22 Interval History: syncope Review of Systems Patient had episodes of vomiting this morning, also still feel very dizzy and even when sits up feels lightheaded Denies any chest pain or shortness of breath or abdominal pain or fever or chills. Physical Exam Vital Signs: Vital Signs: Last Vital Signs Temp 98.2 F 01/23/22 21:31 Pulse 55 01/24/22 12:15 Resp 14 01/24/22 12:15 BP 119/62 01/24/22 12:15 Pulse Ox 98 01/24/22 12:15 O2 Del Method 01/24/22 12:15 BMI result Body Mass Index 21.7 Appearance: Alert.? Oriented X3.? not in distress.? cvs: rrr, [id number] , no murmur res: clear to auscultation ,no rhonchii or wheezing abd: no rebound or guarding ,nt, bs present. ext pulses present , no cyanosis . neuro: axo3 , nonfocal. Objective Data Active Medications Acetaminophen (Acetaminophen 325 Mg Tablet) 650 mg PO Q6H PRN PRN Reason: Pain, Mild (Pain Scale 1-3) Acetaminophen/Butalbital/Caffeine (Butalb/Acetamin/Caff 50/325/40 Tablet) 1 tab PO Q4H PRN PRN Reason: Headache Albuterol Sulfate (Albuterol Sulfate 90 Mcg 8 Gm Inhaler) 2 puff INHALE Q6H PRN PRN Reason: Dyspnea Albuterol/Ipratropium (Albuterol/Iprat 2.5/0.5mg 3 Ml Ampul.Neb) 3 ml INHALE Q6H PRN PRN Reason: Dyspnea Celecoxib (Celecoxib 200 Mg Capsule) 200 mg PO DAILY [facility] Last Admin: 01/24/22 13:36 Dose: Not Given Documented By: JUAN Non-Admin Reason: Patient Refused Docusate Sodium (Docusate Sodium 100 Mg Capsule) 100 mg PO DAILY PRN PRN Reason: Constipation Duloxetine HCl (Duloxetine Hcl 60 Mg Capsule.Dr) 60 mg PO DAILY [facility] Last Admin: 01/24/22 13:34 Dose: Not Given Documented By: JUAN Non-Admin Reason: Patient Refused Enoxaparin Sodium (Enoxaparin Sodium 40 Mg/0.4 Ml Syringe) 40 mg SUBCUT Q24H [facility] Last Admin: 01/24/22 13:33 Dose: Not Given Documented By: JUAN Non-Admin Reason: Patient Refused Ergocalciferol (Ergocalciferol (Vitamin D2) 1,250 Mcg Capsule) 1,250 mcg PO Mo [facility] Fluticasone/Vilanterol (Fluticasone/Vilanterol 200/25 Blst.W.Dev) 1 puff INHALE DAILY [facility] Last Admin: 01/24/22 10:58 Dose: Not Given Documented By: JAMEEL Non-Admin Reason: Patient Refused Hydroxychloroquine Sulfate (Hydroxychloroquine Sulfate 200 Mg Tablet) 300 mg PO DAILY [facility] Last Admin: 01/24/22 13:34 Dose: Not Given Documented By: JUAN Non-Admin Reason: Patient Refused Lactated Ringer's (Lr) 1,000 mls @ 100 mls/hr IVCONT .Q10H [facility] Lorazepam (Lorazepam 0.5 Mg Tablet) 0.5 - 1 mg PO DAILY PRN PRN Reason: Anxiety Montelukast Sodium (Montelukast Sodium 10 Mg Tablet) 10 mg PO DAILY [facility] Ondansetron HCl (Ondansetron Hcl 4 Mg/2 Ml Vial) 4 mg IVPUSH Q8H PRN PRN Reason: Nausea and Vomiting Last Admin: 01/24/22 09:37 Dose: 4 mg Documented By: JUAN Pantoprazole Sodium (Pantoprazole Sodium 40 Mg/10 Ml Vial) 40 mg IVPUSH DAILY@0630 [facility] Last Admin: 01/24/22 13:35 Dose: Not Given Documented By: JUAN Non-Admin Reason: Patient Refused Pharmacy Consult (Consult Rx Perform Med Rec) 1 each MISCELLANE ONCE PRN PRN Reason: Consult order Sodium Chloride (0.9 % Sodium Chloride Flush 3 Ml Syringe) 3 ml IVFLUSH QSHIFT [facility] Last Admin: 01/24/22 11:04 Dose: 3 ml Documented By: JUAN Sumatriptan Succinate (Sumatriptan Succinate 100 Mg Tablet) 100 mg PO DAILY PRN PRN Reason: Migraine Headache Last Admin: 01/24/22 13:31 Dose: 100 mg Documented By: JUAN Topiramate (Topiramate 100 Mg Tablet) 100 mg PO DAILY [facility] Last Admin: 01/24/22 13:35 Dose: Not Given Documented By: JUAN Non-Admin Reason: Patient Refused Topiramate (Topiramate 100 Mg Tablet) 200 mg PO BEDTIME [facility] Valacyclovir HCl (Valacyclovir Hcl 500 Mg Tablet) 500 mg PO DAILY [facility] Last Admin: 01/24/22 13:35 Dose: Not Given Documented By: JUAN Non-Admin Reason: Patient Refused Labs CBC & Chem 7: 01/24/22 07:48 01/24/22 07:48 Labs: Laboratory Results - last 24 hr 01/24/22 01/24/22 01/24/22 00:01 00:01 00:01 MCV 95.2 MCH 32.7 MCHC 34.3 RDW 12.2 Plt Count 198 MPV 10.6 Immature Gran % (Auto) 0.2 Neut % (Auto) 45.9 Lymph % (Auto) 45.5 H [place] % (Auto) 6.6 Eos % (Auto) 0.9 Baso % (Auto) 0.9 Lymph # (Auto) 2.4 [place] # (Auto) 0.4 Eos # (Auto) 0.1 Baso # (Auto) 0.1 Abs Immat Gran (auto) 0.01 Absolute Neuts (auto) 2.4 Absolute Nucleated RBC 0.000 Nucleated RBC % (auto) 0.0 D-Dimer High Sensitivty Anion Gap 14 Estim Creat Clear Calc 70.8 Estimated GFR > 60 Random Glucose 95 Calcium 9.0 D Total Bilirubin 0.6 AST 20 ALT 14 Alkaline Phosphatase 107 Troponin I High Sens 6.9 Total Protein 6.7 Albumin 4.2 COVID-19 ([facility]) COVID-19 Clin Com 01/24/22 01/24/22 01/24/22 02:00 02:00 07:48 MCV 94.9 MCH 32.6 MCHC 34.3 RDW 12.0 Plt Count 189 MPV 10.7 Immature Gran % (Auto) 0.2 Neut % (Auto) 77.8 H Lymph % (Auto) 16.3 L [place] % (Auto) 4.7 Eos % (Auto) 0.3 Baso % (Auto) 0.7 Lymph # (Auto) 1.0 L [place] # (Auto) 0.3 Eos # (Auto) 0.0 Baso # (Auto) 0.0 Abs Immat Gran (auto) 0.01 Absolute Neuts (auto) 4.8 Absolute Nucleated RBC 0.000 Nucleated RBC % (auto) 0.0 D-Dimer High Sensitivty < 150 Anion Gap Estim Creat Clear Calc Estimated GFR Random Glucose Calcium Total Bilirubin AST ALT Alkaline Phosphatase Troponin I High Sens Total Protein Albumin COVID-19 ([facility]) Negative COVID-19 Clin Com See Note 01/24/22 07:48 MCV MCH MCHC RDW Plt Count MPV Immature Gran % (Auto) Neut % (Auto) Lymph % (Auto) [place] % (Auto) Eos % (Auto) Baso % (Auto) Lymph # (Auto) [place] # (Auto) Eos # (Auto) Baso # (Auto) Abs Immat Gran (auto) Absolute Neuts (auto) Absolute Nucleated RBC Nucleated RBC % (auto) D-Dimer High Sensitivty Anion Gap 12 Estim Creat Clear Calc 77.4 Estimated GFR > 60 Random Glucose 125 H Calcium 9.1 Total Bilirubin AST ALT Alkaline Phosphatase Troponin I High Sens Total Protein Albumin COVID-19 ([facility]) COVID-19 Clin Com Assessment and Plan (1) Syncope and collapse: Status: Acute Plan 56-year-old female with past medical history of lupus, Sjogren's, Raynaud's and previous syncopal episodes presents to the hospital after syncopal episode # syncope - neurocardiogenic - reports previous history of syncope related to stress workup for syncope with a 24 hour Holter monitor in 2020 which was negative for any significant abnormality Orthostasis negative, seen by neuro less likely neurological seems more likely cardio related carotid study seems fine ct head neg echo and cardio eval added # lupus - continue home medication # history of migraines - has headache - continue Topamax - Excedrin, Tylenol, oxycodone x1 DVT prophylaxis:? s/c lovenox. Quality Stroke Does the patient have a stroke diagnosis?: No VTE Prior VTE?: No VTE Risk Level:: Medical - low VTE Device Contraindication: Treatment Not Indicated VTE Drug Contraindication: Treatment Not Indicated
[2022-01-24] MEDS: Lactated Ringers 1,000 ML 100 ML IVCONT (20:02)
--- NOTE | 2022-01-24 20:50 | PC.NURSE ---
pt states she refused her medications earlier because she was frustrated, pt states she will let this RN known when she would like her bedtime medications, all safety measures maintained
[2022-01-24] MEDS: Topiramate 100 MG TABLET 200 MG PO (21:07)
[2022-01-24] MEDS: Hydroxychloroquine Sulfate 200 MG TABLET 300 MG PO (21:28)
[2022-01-24] MEDS: DULoxetine HCl 60 MG CAPSULE.DR PO (21:36)
[2022-01-24] MEDS: LORazepam 0.5 MG TABLET PO (21:36)
--- NOTE | 2022-01-24 22:53 | PC.NURSE ---
pt note secondary to pt care, pt c/o migraine headache, pt requested sumatriptin, MD aware. pt medicated per SEP.
[2022-01-25] VITALS (8 sets, daily range): BP systolic 98–118; BP diastolic 49–74; PULSE 58–90; RESP 14–18; TEMP 36.3–36.6; O2SAT 94–100
[2022-01-25] MEDS: Pantoprazole Sodium 40 MG/10 ML VIAL IVPUSH (05:53)
[2022-01-25] MEDS: Lactated Ringers 1,000 ML 100 ML IVCONT ×2 (06:01→16:42)
[2022-01-25] MEDS: Butalb/Acetamin/Caff 50/325/40 TABLET 1 TAB PO ×3 (08:04→17:47)
[2022-01-25] MEDS: Enoxaparin Sodium 40 MG/0.4 ML SYRINGE SUBCUT (08:05)
[2022-01-25] MEDS: Topiramate 100 MG TABLET PO (08:05)
[2022-01-25] MEDS: DULoxetine HCl 60 MG CAPSULE.DR PO (08:05)
[2022-01-25] MEDS: Celecoxib 200 MG CAPSULE PO (08:05)
--- NOTE | 2022-01-25 09:52 | PC.NURSE ---
Pt resting in hospital bed. C/o headache. Medicated with PRN furicet. Pt refusing some meds this AM ===> see MAR. Lungs sound clear neuros intact. pt is a/o at this time. VSS. Pt takes meds whole with water. Pt with ax1 and wheelchair to the bathroom. Callbell within reach.
--- NOTE | 2022-01-25 10:14 | PM.CNCAR ---
History of Present Illness History of Present Illness Date of Service: 01/25/22 Chief complaint: Syncope Narrative: This is a cardiology consultation regarding syncopal episode. Patient does not have any known cardiac issues. No history of any coronary artery disease or myocardial infarction or cardiomyopathy or in fact any cardiac issues whatsoever. She is listed to have various medical comorbidities including lupus, Sjogren's, Raynaud's, fibromyalgia and asthma. She is apparently under lot of stress because of her elderly mother. It seems that she was going to the kitchen and all of a sudden fell down. According to patient, she fell on her back. Prior to that, she saw some wavy type patterns. No other accompanying cardiac symptoms like angina. However, she has noticed exercise intolerance recently and gets short of breath with activity. Since arrival, no new concerns. Review of Systems Review of Systems: Yes all other systems are reviewed and are negative Constitutional: Constitutional: Reports as per HPI Eyes: Eyes: Reports as per HPI ENT: Reports as per HPI Cardiovascular: Cardiovascular: Reports as per HPI, Denies acrocyanosis, Denies cool extremities, Denies chest pain, Denies leg edema, Reports lightheadedness, Reports Loss of Consciousness, Denies palpitations and Denies dyspnea Respiratory: Respiratory: Reports as per HPI, Reports no additional respiratory complaints and Denies dyspnea Gastrointestinal: Gastrointestinal: Reports as per HPI and Reports no additional gastrointestinal complaints Genitourinary: Genitourinary: Reports as per HPI Musculoskeletal: Musculoskeletal: Reports no additional musculoskeletal complaints and Reports as per HPI Integumentary/Breasts: Skin/Breast: Reports system reviewed and no additional complaints, except as docu Neurologic: Reports system reviewed and no additional complaints, except as documented and Reports as per HPI Psychiatric: Psychiatric: Reports no additional psychiatric complaints and Reports as per HPI Endocrine: Endocrine: Reports no additional endocrine complaints, Reports as per HPI and Denies palpitations Hematologic/Lymphatic: Hematologic/Lymphatic: Reports no additional hematologic/lymphatic complaints and Reports as per HPI Allergic/Immunologic: Allergic/Immunologic: Reports no additional allergic/immunologic complaints and Reports as per HPI [facility] Past Medical History Medical History Allergic rhinitis Anxiety Asthma IBS (irritable bowel syndrome) Migraine Osteopenia Morris syndrome Surgical contraindication to deep vein thrombosis (DVT) prophylaxis Family History Family History Mother HTN (hypertension) Arthritis Stroke Pacemaker Father COVID-19 Surgical History Surgical History H/O colposcopy with cervical biopsy Social History Social History Alcohol intake: never Patient Tobacco Use Status: Never used Tobacco e-Cigarette/Vaping Use: Never Used Use of substances other than those prescribed or required for medical reasons: No Advance Directives: Yes Advance Directives on File: Yes Advance Directives Date on File: 01/24/22 Patient : No service: No Current occupational status: unemployed Meds Allergies Allergy/AdvReac Type Severity Reaction Status Date / Time amoxicillin Allergy Unknown Unknown Verified 08/05/21 14:22 hydroxyzine Allergy Unknown Unknown Verified 08/05/21 14:22 metoclopramide [Reglan] Allergy Unknown Unknown Verified 08/05/21 14:22 penicillin V Allergy Unknown unknown Verified 08/05/21 14:22 perphenazine Allergy Unknown Unknown Verified 08/05/21 14:22 Rev Eyes Allergy Unknown Unknown Uncoded 08/05/21 14:22 Active Medications: Current Medications Acetaminophen (Acetaminophen 325 Mg Tablet) 650 mg PO Q6H PRN PRN Reason: Pain, Mild (Pain Scale 1-3) Acetaminophen/Butalbital/Caffeine (Butalb/Acetamin/Caff 50/325/40 Tablet) 1 tab PO Q4H PRN PRN Reason: Headache Last Admin: 01/25/22 08:04 Dose: 1 tab Albuterol Sulfate (Albuterol Sulfate 90 Mcg 8 Gm Inhaler) 2 puff INHALE Q6H PRN PRN Reason: Dyspnea Albuterol/Ipratropium (Albuterol/Iprat 2.5/0.5mg 3 Ml Ampul.Neb) 3 ml INHALE Q6H PRN PRN Reason: Dyspnea Celecoxib (Celecoxib 200 Mg Capsule) 200 mg PO DAILY [facility] Last Admin: 01/25/22 08:05 Dose: 200 mg Docusate Sodium (Docusate Sodium 100 Mg Capsule) 100 mg PO DAILY PRN PRN Reason: Constipation Duloxetine HCl (Duloxetine Hcl 60 Mg Capsule.Dr) 60 mg PO DAILY [facility] Last Admin: 01/25/22 08:05 Dose: 60 mg Enoxaparin Sodium (Enoxaparin Sodium 40 Mg/0.4 Ml Syringe) 40 mg SUBCUT Q24H [facility] Last Admin: 01/25/22 08:05 Dose: 40 mg Ergocalciferol (Ergocalciferol (Vitamin D2) 1,250 Mcg Capsule) 1,250 mcg PO Mo [facility] Fluticasone/Vilanterol (Fluticasone/Vilanterol 200/25 Blst.W.Dev) 1 puff INHALE DAILY [facility] Last Admin: 01/25/22 08:21 Dose: Not Given Hydroxychloroquine Sulfate (Hydroxychloroquine Sulfate 200 Mg Tablet) 300 mg PO DAILY [facility] Last Admin: 01/24/22 21:28 Dose: 300 mg Lactated Ringer's (Lr) 1,000 mls @ 100 mls/hr IVCONT .Q10H [facility] Last Admin: 01/25/22 06:01 Dose: 100 mls/hr Lorazepam (Lorazepam 0.5 Mg Tablet) 0.5 - 1 mg PO DAILY PRN PRN Reason: Anxiety Last Admin: 01/24/22 21:36 Dose: 0.5 mg Montelukast Sodium (Montelukast Sodium 10 Mg Tablet) 10 mg PO DAILY [facility] Last Admin: 01/25/22 08:01 Dose: Not Given Ondansetron HCl (Ondansetron Hcl 4 Mg/2 Ml Vial) 4 mg IVPUSH Q8H PRN PRN Reason: Nausea and Vomiting Last Admin: 01/24/22 09:37 Dose: 4 mg Pantoprazole Sodium (Pantoprazole Sodium 40 Mg/10 Ml Vial) 40 mg IVPUSH DAILY@0630 [facility] Last Admin: 01/25/22 05:53 Dose: 40 mg Pharmacy Consult (Consult Rx Perform Med Rec) 1 each MISCELLANE ONCE PRN PRN Reason: Consult order Sodium Chloride (0.9 % Sodium Chloride Flush 3 Ml Syringe) 3 ml IVFLUSH QSHIFT [facility] Last Admin: 01/25/22 08:09 Dose: Not Given Sumatriptan Succinate (Sumatriptan Succinate 100 Mg Tablet) 100 mg PO DAILY PRN PRN Reason: Migraine Headache Last Admin: 01/24/22 21:27 Dose: 100 mg Topiramate (Topiramate 100 Mg Tablet) 100 mg PO DAILY [facility] Last Admin: 01/25/22 08:05 Dose: 100 mg Topiramate (Topiramate 100 Mg Tablet) 200 mg PO BEDTIME [facility] Last Admin: 01/24/22 21:07 Dose: 200 mg Valacyclovir HCl (Valacyclovir Hcl 500 Mg Tablet) 500 mg PO DAILY [facility] Last Admin: 01/25/22 08:02 Dose: Not Given Home Medications Medication Instructions Recorded Confirmed Last Taken Type albuterol sulfate 90 mcg/actuation 2 puff inhalation Q6H PRN Dyspnea 08/25/20 01/23/22 Unknown History aerosol inhaler ipratropium 0.5 mg-albuterol 3 mg 3 ml inhalation Q6-8H PRN Dyspnea 08/25/20 01/24/22 Unknown History (2.5 mg base)/3 mL nebulization soln [id number] 250 2 tab PO Q6H PRN Dyspnea 10/12/20 01/23/22 Unknown History mg-250 mg-65 mg tablet (Excedrin Extra Strength) omega-3 fatty acids 1,000 mg 1,000 mg PO DAILY 10/12/20 01/24/22 Unknown History capsule (Fish Oil Concentrate) valacyclovir 500 mg tablet 500 mg PO DAILY 01/18/21 01/24/22 Unknown History (Valtrex) lorazepam 0.5 mg tablet (Ativan) 0.5 - 1 mg PO DAILY PRN Anxiety 01/23/22 01/24/22 01/23/22 History duloxetine 60 mg capsule,delayed 1 cap PO DAILY 01/24/22 01/24/22 Unknown History release ergocalciferol (vitamin D2) 1,250 1 cap PO QWEEK 01/24/22 01/24/22 Unknown History mcg (50,000 unit) capsule meloxicam 15 mg tablet 1 tab PO DAILY 01/24/22 01/24/22 Unknown History montelukast 10 mg tablet 1 tab PO DAILY 01/24/22 01/24/22 Unknown History tizanidine 4 mg tablet 1 - 2 tab PO NEEDED muscle spasm 01/24/22 01/24/22 Unknown History topiramate 100 mg tablet 1 tab PO DAILY 01/24/22 01/24/22 Unknown History zolmitriptan 5 mg tablet 1 tab PO DAILY PRN Migraine 01/24/22 01/24/22 01/23/22 History Headache Physical Exam Vital Signs: Vital Signs: Last Vital Signs Temp 97.8 F 01/25/22 05:55 Pulse 62 01/25/22 08:07 Resp 18 01/25/22 08:07 BP 102/66 01/25/22 08:07 Pulse Ox 100 01/25/22 08:07 O2 Del Method 01/25/22 08:07 BMI result Body Mass Index 21.7 Const: General: comfortable and no acute distress Orientation/consciousness: patient oriented x3 HEENT: Other: Unremarkable Head: Yes normal to inspection Neck: Neck: Yes normal visual inspection Chest: Chest palpation & inspection: normal inspection of the chest Resp: Auscultation: clear to auscultation bilaterally Cardio: Palpation: normal PMI Heart sounds: S1 normal heart sound present, S2 normal heart sound present, no gallops, no murmurs and no rubs GI: Palpation (GI): Soft to palpation Back/Spine/Pelvis: Other: unremarkable Skin: General skin exam: no rashes or lesions noted Neuro: General: patient oriented x3 Extrem: General: Yes normal to inspection Psych: Mental Status: mental status grossly normal Objective Labs and Meds Result diagrams: 01/24/22 07:48 01/24/22 07:48 ECG Interpretation: Initial EKG with sinus rhythm at 65/Min; rightward axis; low-voltage complexes but otherwise unremarkable. Second EKG shows sinus bradycardia at 52/Min; borderline [place] prolongation to 210 milliseconds but no other significant findings. In telemetry, she has some bradycardia but again nothing profound. Imaging Radiologist's impression: Impressions Carotid Doppler Study 01/24/22 08:54 IMPRESSION: 1. RIGHT: Normal right internal carotid artery without atherosclerotic plaque or hemodynamically significant stenosis. 2. LEFT: Normal left internal carotid artery without atherosclerotic plaque or hemodynamically significant stenosis. Assessment and Plan (1) Syncope and collapse: Status: Acute Plan Based on the orthostatic vital signs, no significant drop. However, there is nursing note that patient felt lightheaded when going from laying to sitting. Overall, no profound hypotension since arrival. Lowish blood pressures 98/49 mm Hg but most others are slightly higher. As discussed about telemetry shows some bradycardia but nothing profound. High sensitivity troponins are within normal limits. Echocardiogram with normal LVEF, 64% but otherwise unremarkable. Overall, syncopal episode could be from vasovagal/orthostatic. Doubt any arrhythmic etiology. Based on echocardiogram, no structural abnormalities. At this time, recommendation is to mainly keep her well hydrated. If still recurs, then may need tilt-table testing. In the past, Holter monitor was unremarkable and there is a mention that even during sinus rhythm she was feeling dizzy. Hence unlikely that arrhythmias play a role. Follow-up can be arranged. Procedures Date of Service Date of Service: 01/25/22
[2022-01-25] MEDS: Meclizine HCl 25 MG TABLET PO ×2 (14:23→20:22)
--- NOTE | 2022-01-25 16:43 | HO.PM.IMPN ---
Subjective Subjective Date of Service: 01/25/22 Interval History: still has headches and vertiago Review of Systems Still feel very dizzy with standing up but somewhat better than yesterday Denies any nausea vomiting today Physical Exam Vital Signs: Vital Signs: Last Vital Signs Temp 97.6 F 01/25/22 11:24 Pulse 68 01/25/22 15:17 Resp 16 01/25/22 15:17 BP 108/60 01/25/22 15:17 Pulse Ox 98 01/25/22 15:17 O2 Del Method 01/25/22 15:17 BMI result Body Mass Index 21.7 Appearance: Alert.? Oriented X3.? not in distress.? cvs: rrr, [id number] , no murmur res: clear to auscultation ,no rhonchii or wheezing abd: no rebound or guarding ,nt, bs present. ext pulses present , no cyanosis . neuro: axo3 , nonfocal.? Objective Data Active Medications Acetaminophen (Acetaminophen 325 Mg Tablet) 650 mg PO Q6H PRN PRN Reason: Pain, Mild (Pain Scale 1-3) Acetaminophen/Butalbital/Caffeine (Butalb/Acetamin/Caff 50/325/40 Tablet) 1 tab PO Q4H PRN PRN Reason: Headache Last Admin: 01/25/22 12:18 Dose: 1 tab Documented By: ULISES Albuterol Sulfate (Albuterol Sulfate 90 Mcg 8 Gm Inhaler) 2 puff INHALE Q6H PRN PRN Reason: Dyspnea Albuterol/Ipratropium (Albuterol/Iprat 2.5/0.5mg 3 Ml Ampul.Neb) 3 ml INHALE Q6H PRN PRN Reason: Dyspnea Celecoxib (Celecoxib 200 Mg Capsule) 200 mg PO DAILY [facility] Last Admin: 01/25/22 08:05 Dose: 200 mg Documented By: ULISES Docusate Sodium (Docusate Sodium 100 Mg Capsule) 100 mg PO DAILY PRN PRN Reason: Constipation Duloxetine HCl (Duloxetine Hcl 60 Mg Capsule.Dr) 60 mg PO DAILY [facility] Last Admin: 01/25/22 08:05 Dose: 60 mg Documented By: ULISES Enoxaparin Sodium (Enoxaparin Sodium 40 Mg/0.4 Ml Syringe) 40 mg SUBCUT Q24H [facility] Last Admin: 01/25/22 08:05 Dose: 40 mg Documented By: ULISES Ergocalciferol (Ergocalciferol (Vitamin D2) 1,250 Mcg Capsule) 1,250 mcg PO Mo [facility] Fluticasone/Vilanterol (Fluticasone/Vilanterol 200/25 Blst.W.Dev) 1 puff INHALE DAILY [facility] Last Admin: 01/25/22 08:21 Dose: Not Given Documented By: YULIYA Non-Admin Reason: Patient Refused Hydroxychloroquine Sulfate (Hydroxychloroquine Sulfate 200 Mg Tablet) 300 mg PO DAILY [facility] Last Admin: 01/24/22 21:28 Dose: 300 mg Documented By: TEO Lactated Ringer's (Lr) 1,000 mls @ 100 mls/hr IVCONT .Q10H [facility] Last Admin: 01/25/22 16:42 Dose: 100 mls/hr Documented By: ULISES Lorazepam (Lorazepam 0.5 Mg Tablet) 0.5 - 1 mg PO DAILY PRN PRN Reason: Anxiety Last Admin: 01/24/22 21:36 Dose: 0.5 mg Documented By: TEO Meclizine HCl (Meclizine Hcl 25 Mg Tablet) 25 mg PO BID [facility] Montelukast Sodium (Montelukast Sodium 10 Mg Tablet) 10 mg PO DAILY [facility] Last Admin: 01/25/22 08:01 Dose: Not Given Documented By: ULISES Non-Admin Reason: Patient Refused Ondansetron HCl (Ondansetron Hcl 4 Mg/2 Ml Vial) 4 mg IVPUSH Q8H PRN PRN Reason: Nausea and Vomiting Last Admin: 01/24/22 09:37 Dose: 4 mg Documented By: JUAN Pantoprazole Sodium (Pantoprazole Sodium 40 Mg/10 Ml Vial) 40 mg IVPUSH DAILY@0630 [facility] Last Admin: 01/25/22 05:53 Dose: 40 mg Documented By: JEAN CARLOS Pharmacy Consult (Consult Rx Perform Med Rec) 1 each MISCELLANE ONCE PRN PRN Reason: Consult order Sodium Chloride (0.9 % Sodium Chloride Flush 3 Ml Syringe) 3 ml IVFLUSH QSHIFT [facility] Last Admin: 01/25/22 15:20 Dose: Not Given Documented By: ULISES Non-Admin Reason: IV Running Sumatriptan Succinate (Sumatriptan Succinate 100 Mg Tablet) 100 mg PO DAILY PRN PRN Reason: Migraine Headache Last Admin: 01/24/22 21:27 Dose: 100 mg Documented By: TEO Topiramate (Topiramate 100 Mg Tablet) 100 mg PO DAILY [facility] Last Admin: 01/25/22 08:05 Dose: 100 mg Documented By: ULISES Topiramate (Topiramate 100 Mg Tablet) 200 mg PO BEDTIME [facility] Last Admin: 01/24/22 21:07 Dose: 200 mg Documented By: TEO Valacyclovir HCl (Valacyclovir Hcl 500 Mg Tablet) 500 mg PO DAILY [facility] Last Admin: 01/25/22 08:02 Dose: Not Given Documented By: ULISES Non-Admin Reason: Patient Refused Labs CBC & Chem 7: 01/24/22 07:48 01/24/22 07:48 Assessment and Plan (1) Syncope and collapse: Status: Acute Plan 56-year-old female with past medical history of lupus, Sjogren's, Raynaud's and previous syncopal episodes presents to the hospital after syncopal episode # syncope - neurocardiogenic - reports previous history of syncope related to stress workup for syncope with a 24 hour Holter monitor in 2020 which was negative for any significant abnormality Orthostasis negative, seen by neuro less likely neurological dizziness carotid study seems fine ct head neg echo :Left Ventricle Normal left ventricular cavity size.? There is normal left ventricular wall thickness.? The left ventricular systolic function is normal.? The calculated ejection fraction is 64% by biplane method.? There is no evidence of regional wall motion abnormalities.? Diastolic function is normal for age. cardio eval added-possible vasovagal/orthostatic.further workup outpatient patient still significantly dizziness-repeat orthstasis , added meclizine and continue hydration. # lupus - continue home medication # history of migraines - has headache - continue Topamax - Excedrin, Tylenol, oxycodone x1 DVT prophylaxis:? s/c lovenox. inpatient need: dizziness ? orthostatic Quality Stroke Does the patient have a stroke diagnosis?: No VTE Prior VTE?: No VTE Risk Level:: Medical - low VTE Device Contraindication: Treatment Not Indicated VTE Drug Contraindication: Treatment Not Indicated
[2022-01-25] MEDS: ondansetron HCL 4 MG/2 ML VIAL IVPUSH ×2 (17:48→23:03)
[2022-01-25] MEDS: Topiramate 100 MG TABLET 200 MG PO (20:22)
[2022-01-25] MEDS: SUMAtriptan succinate 100 MG TABLET PO (23:03)
[2022-01-25] MEDS: LORazepam 0.5 MG TABLET PO (23:03)
[2022-01-25] MEDS: 0.9 % Sodium Chloride Flush 3 ML SYRINGE IVFLUSH (23:07)
--- NOTE | 2022-01-25 23:42 | PC.NURSE ---
PATIENT WAS A 1 ASST FOR AMBULATION TO BATHROOM ,GOT DIZZY ,USE WHEELCHAIR BACK TO ROOM ,OFFER JGINGER NKECHI TO PATIENT .
[2022-01-26] VITALS (7 sets, daily range): BP systolic 102–114; BP diastolic 54–75; PULSE 53–72; RESP 12–20; TEMP 36.4–36.5; O2SAT 97–100
[2022-01-26] MEDS: DULoxetine HCl 60 MG CAPSULE.DR PO ×2 (00:12→08:39)
[2022-01-26] MEDS: Hydroxychloroquine Sulfate 200 MG TABLET 300 MG PO (00:12)
--- NOTE | 2022-01-26 00:42 | PC.NURSE ---
SMALL TRASH BAG AND TISSUE GIVEN TO PATIENT .
[2022-01-26] MEDS: Lactated Ringers 1,000 ML 100 ML IVCONT ×2 (02:49→14:58)
--- NOTE | 2022-01-26 04:21 | PC.NURSE ---
PATIENT WAS ASSISTED UNTO BEDSIDE COMMODE ,VOID LARGE AMOUNT ,WARM BLANKETS GIVEN .
[2022-01-26] MEDS: Pantoprazole Sodium 40 MG/10 ML VIAL IVPUSH (05:45)
[2022-01-26] MEDS: Fluticasone/Vilanterol 200/25 BLST.W.DEV 1 PUFF INHALE (07:58)
[2022-01-26] MEDS: Enoxaparin Sodium 40 MG/0.4 ML SYRINGE SUBCUT (08:39)
[2022-01-26] MEDS: Topiramate 100 MG TABLET PO (08:39)
[2022-01-26] MEDS: 0.9 % Sodium Chloride Flush 3 ML SYRINGE IVFLUSH (08:39)
[2022-01-26] MEDS: Celecoxib 200 MG CAPSULE PO (08:39)
[2022-01-26] MEDS: Meclizine HCl 25 MG TABLET PO ×2 (08:39→21:06)
--- NOTE | 2022-01-26 08:47 | PC.NURSE ---
Pt is A/O. c/o some weakness when ambulating. pt denies headache this AM. VSS. Dr Cuevas at bedside to see pt. pt provided with AM meclizine. Pt refusing some meds, see MAR. Medicated per SEP. Pt gave herself morning care. Callbell and belongings within reach.
[2022-01-26] MEDS: Butalb/Acetamin/Caff 50/325/40 TABLET 1 TAB PO (10:11)
--- NOTE | 2022-01-26 11:50 | PC.NURSE ---
Pt ambulated with ax2 to the bathroom. pt verbalizes some increased weakness and dizziness when ambulating. Pt having to pause at times. pts gait is very unsteady. dr. Cuevas made aware.
--- NOTE | 2022-01-26 13:01 | HO.PM.IMPN ---
Subjective Subjective Date of Service: 01/26/22 Interval History: ? bppv Review of Systems still very dizzy even with standing Denies any chest pain or shortness of breath or abdominal pain or fever chills Feels with generalized weak Physical Exam Vital Signs: Vital Signs: Last Vital Signs Temp 97.5 F 01/26/22 11:38 Pulse 66 01/26/22 11:38 Resp 17 01/26/22 11:38 BP 114/75 01/26/22 11:38 Pulse Ox 100 01/26/22 11:38 O2 Del Method 01/26/22 11:38 BMI result Body Mass Index 21.7 Appearance: Alert.? Oriented X3.? not in distress.? cvs: rrr, [id number] , no murmur res: clear to auscultation ,no rhonchii or wheezing abd: no rebound or guarding ,nt, bs present. ext pulses present , no cyanosis . neuro: axo3 , nonfocal.? Objective Data Active Medications Acetaminophen (Acetaminophen 325 Mg Tablet) 650 mg PO Q6H PRN PRN Reason: Pain, Mild (Pain Scale 1-3) Acetaminophen/Butalbital/Caffeine (Butalb/Acetamin/Caff 50/325/40 Tablet) 1 tab PO Q4H PRN PRN Reason: Headache Last Admin: 01/26/22 10:11 Dose: 1 tab Documented By: ULISES Albuterol Sulfate (Albuterol Sulfate 90 Mcg 8 Gm Inhaler) 2 puff INHALE Q6H PRN PRN Reason: Dyspnea Albuterol/Ipratropium (Albuterol/Iprat 2.5/0.5mg 3 Ml Ampul.Neb) 3 ml INHALE Q6H PRN PRN Reason: Dyspnea Celecoxib (Celecoxib 200 Mg Capsule) 200 mg PO DAILY [facility] Last Admin: 01/26/22 08:39 Dose: 200 mg Documented By: ULISES Docusate Sodium (Docusate Sodium 100 Mg Capsule) 100 mg PO DAILY PRN PRN Reason: Constipation Duloxetine HCl (Duloxetine Hcl 60 Mg Capsule.Dr) 60 mg PO DAILY [facility] Last Admin: 01/26/22 08:39 Dose: 60 mg Documented By: ULISES Enoxaparin Sodium (Enoxaparin Sodium 40 Mg/0.4 Ml Syringe) 40 mg SUBCUT Q24H [facility] Last Admin: 01/26/22 08:39 Dose: 40 mg Documented By: ULISES Ergocalciferol (Ergocalciferol (Vitamin D2) 1,250 Mcg Capsule) 1,250 mcg PO Mo [facility] Fluticasone/Vilanterol (Fluticasone/Vilanterol 200/25 Blst.W.Dev) 1 puff INHALE DAILY [facility] Last Admin: 01/26/22 07:58 Dose: 1 puff Documented By: CHUCK Hydroxychloroquine Sulfate (Hydroxychloroquine Sulfate 200 Mg Tablet) 300 mg PO DAILY [facility] Last Admin: 01/26/22 08:40 Dose: Not Given Documented By: ULISES Non-Admin Reason: given earlier by prior nurse Lorazepam (Lorazepam 0.5 Mg Tablet) 0.5 - 1 mg PO DAILY PRN PRN Reason: Anxiety Last Admin: 01/25/22 23:03 Dose: 1 mg Documented By: ALICIA Meclizine HCl (Meclizine Hcl 25 Mg Tablet) 25 mg PO BID [facility] Last Admin: 01/26/22 08:39 Dose: 25 mg Documented By: ULISES Montelukast Sodium (Montelukast Sodium 10 Mg Tablet) 10 mg PO DAILY [facility] Last Admin: 01/26/22 08:40 Dose: Not Given Documented By: ULISES Non-Admin Reason: Patient Refused Ondansetron HCl (Ondansetron Hcl 4 Mg/2 Ml Vial) 4 mg IVPUSH Q8H PRN PRN Reason: Nausea and Vomiting Last Admin: 01/25/22 23:03 Dose: 4 mg Documented By: ALICIA Pantoprazole Sodium (Pantoprazole Sodium 40 Mg/10 Ml Vial) 40 mg IVPUSH DAILY@0630 [facility] Last Admin: 01/26/22 05:45 Dose: 40 mg Documented By: ALICIA Pharmacy Consult (Consult Rx Perform Med Rec) 1 each MISCELLANE ONCE PRN PRN Reason: Consult order Sodium Chloride (0.9 % Sodium Chloride Flush 3 Ml Syringe) 3 ml IVFLUSH QSHIFT [facility] Last Admin: 01/26/22 08:39 Dose: 3 ml Documented By: ULISES Sumatriptan Succinate (Sumatriptan Succinate 100 Mg Tablet) 100 mg PO DAILY PRN PRN Reason: Migraine Headache Last Admin: 01/25/22 23:03 Dose: 100 mg Documented By: ALICIA Topiramate (Topiramate 100 Mg Tablet) 100 mg PO DAILY [facility] Last Admin: 01/26/22 08:39 Dose: 100 mg Documented By: ULISES Topiramate (Topiramate 100 Mg Tablet) 200 mg PO BEDTIME [facility] Last Admin: 01/25/22 20:22 Dose: 200 mg Documented By: ALICIA Valacyclovir HCl (Valacyclovir Hcl 500 Mg Tablet) 500 mg PO DAILY [facility] Last Admin: 01/26/22 08:40 Dose: Not Given Documented By: ULISES Non-Admin Reason: Patient Refused Labs CBC & Chem 7: 01/24/22 07:48 01/24/22 07:48 Assessment and Plan (1) Syncope and collapse: Status: Acute Plan 56-year-old female with past medical history of lupus, Sjogren's, Raynaud's and previous syncopal episodes presents to the hospital after syncopal episode # syncope vasovagal vs orthostatic vs bppv - reports previous history of syncope related to stress workup for syncope with a 24 hour Holter monitor in 2020 which was negative for any significant abnormality Orthostasis negative, seen by neuro less likely neurological dizziness carotid study seems fine ct head neg echo :Left Ventricle Normal left ventricular cavity size.? There is normal left ventricular wall thickness.? The left ventricular systolic function is normal.? The calculated ejection fraction is 64% by biplane method.? There is no evidence of regional wall motion abnormalities.? Diastolic function is normal for age. cardio eval added-possible vasovagal/orthostatic.further workup outpatient patient still significantly dizziness-repeat orthstasis , added meclizine and continue hydration. added pt/ot # lupus - continue home medication # history of migraines - has headache - continue Topamax - Excedrin, Tylenol, oxycodone x1 DVT prophylaxis:? s/c lovenox. inpatient need: dizziness ? orthostatic Quality Stroke Does the patient have a stroke diagnosis?: No VTE Prior VTE?: No VTE Risk Level:: Medical - low VTE Device Contraindication: Treatment Not Indicated VTE Drug Contraindication: Treatment Not Indicated
--- NOTE | 2022-01-26 15:54 | PC.NURSE ---
Pt remains resting in the hospital bed. VSS/ pt stating that she is afraid to walk because of COVID. Reassurance and education provided. Pt educated on importance of keeping ambulatory. will reinforce teachings.
[2022-01-26] MEDS: Topiramate 100 MG TABLET 200 MG PO (21:05)
[2022-01-26] MEDS: SUMAtriptan succinate 100 MG TABLET PO (21:07)
[2022-01-26] MEDS: LORazepam 0.5 MG TABLET PO (21:08)
--- NOTE | 2022-01-27 03:11 | PC.NURSE ---
RESTING COMF.OOB TO COMMODE.NO C/O DIZZINESS AT PRESENT.IV FLUIDS COMPLETED.MONITOR SR,HR 60'S.
[2022-01-27 04:00] VITALS: BP 104/67; PULSE 59; RESP 12; TEMP 36.5; O2SAT 99
[2022-01-27] MEDS: Pantoprazole Sodium 40 MG/10 ML VIAL IVPUSH (05:53)
[2022-01-27 08:15] VITALS: BP 104/67; PULSE 59; O2SAT 99
[2022-01-27 08:33] VITALS: BP 105/63; PULSE 58; RESP 12; TEMP 36.5; O2SAT 99
[2022-01-27] MEDS: Fluticasone/Vilanterol 200/25 BLST.W.DEV 1 PUFF INHALE (09:06)
[2022-01-27 09:07] VITALS: PULSE 67; RESP 18; O2SAT 99
--- NOTE | 2022-01-27 11:56 | PM.DS ---
DS: Providers Provider Date of Service: 01/27/22 Date of admission: 01/24/22 04:52 Primary care physician: Amador Mackenzie MD Consults: 01/24/22 09:28 Consult to Neurology Routine Consulting Provider: [facility] Reason for consultation: syncope Has provider been notified: No 01/24/22 17:19 Consult to Cardiology Routine Consulting Provider: [facility] Reason for consultation: dizziness /syncope Has provider been notified: No DS: Diagnosis Discharge Diagnosis (1) Syncope and collapse: Status: Acute DS: Summary Hospital Course Hospital Course: 56-year-old female with past medical history of lupus, Sjogren's, Raynaud's, fibromyalgia, asthma, and history of syncopal episodes who presents to the hospital after syncope at home.? Her daughter at bedside gives most of the history as patient is sleeping but wakes up and answers questions appropriately.? According to the daughter they were at home with the patient, laughing and having a good time when patient got up to go to the kitchen to get ice cream, with sudden the heard a drop and found her on the floor unconscious.? This lasted about 10-15 seconds, patient came about and was not confused, no seizure-like activity.? No loss of bowel or bladder control.? Patient herself reports that she was dizzy prior to passing out, she also felt palpitations.? Otherwise denies any chest pain, no shortness of breath.? Daughter reports that prior to this syncope patient has been feeling weak and under a lot of stress, has been taking care of her elderly sick mother.? Reports that she has history of syncope, related to stressful situations.? Patient currently reports a splitting headache, she does report hitting the back of her head upon falling, reports no change in vision, no no weakness numbness or tingling in her extremities or face.? No chest pain, no palpitations at this time, no abdominal pain, no shortness of breath, no nausea or vomiting, no diarrhea constipation, no urinary symptoms and no lower extremity edema.? On arrival to the ED patient hemodynamically stable with no significant abnormal vitals Labs are significant for WBC count of 5.3, hemoglobin of 11.5, hematocrit 33.5, otherwise unremarkable, EKG reviewed by me showed no significant abnormality Head CT shows no acute intracranial findings Patient will be admitted for further workup. Hospital course: Patient came to the hospital because of syncopal episode: Possible vasovagal versus benign positional vertigo: seen by neuorlogy and cardiology:Patient orthostatics negative, CT head negative carotid seems fine also echo seems fine also-patient was given meclizine and given hydration and subsequently patient's condition seems to be improving. Patient is to follow-up out patiently with PCP for further management and workup if needed id. Patient seen by PT and recommended home PT cardiology may arrange their own appointement. Above management discussed with the patient in detail length she understand and in agreement with the above plan, time spent 50 minutes and 50% time spent on counseling. Significant findings: As above. Procedures performed: None. Treatment and response: As above. Complications: None. Time Spent with Patient Time attestation: Total time spent providing and/or coordinating discharge services: Discharge coordination time: Greater than 30 minutes Quality: Safe Use of Opioids Does Pt have an Active Cancer Diagnosis on the Problem List?: No Quality: Stroke Does the patient have a stroke diagnosis?: No Physical Exam Vital Signs: Vital Signs: Last Vital Signs Temp 97.7 F 01/27/22 08:33 Pulse 67 01/27/22 09:07 Resp 18 01/27/22 09:07 BP 105/63 01/27/22 08:33 Pulse Ox 99 01/27/22 08:33 O2 Del Method 01/27/22 08:33 BMI result Body Mass Index 21.7 Appearance: Alert.? Oriented X3.? not in distress.? cvs: rrr, [id number] , no murmur res: clear to auscultation ,no rhonchii or wheezing abd: no rebound or guarding ,nt, bs present. ext pulses present , no cyanosis . neuro: axo3 , nonfocal. DS: Data Additional Comments Additional comments: 00:01 00:01 00:01 MCV ?95.2 ? ? MCH ?32.7 ? ? MCHC ?34.3 ? ? RDW ?12.2 ? ? Plt Count ?198 ? ? MPV ?10.6 ? ? Immature Gran % (Auto) ?0.2 ? ? Neut % (Auto) ?45.9 ? ? Lymph % (Auto) ?45.5 H ? ? [place] % (Auto) ?6.6 ? ? Eos % (Auto) ?0.9 ? ? Baso % (Auto) ?0.9 ? ? Lymph # (Auto) ?2.4 ? ? [place] # (Auto) ?0.4 ? ? Eos # (Auto) ?0.1 ? ? Baso # (Auto) ?0.1 ? ? Abs Immat Gran (auto) ?0.01 ? ? Absolute Neuts (auto) ?2.4 ? ? Absolute Nucleated RBC ?0.000 ? ? Nucleated RBC % (auto) ?0.0 ? ? D-Dimer High Sensitivty ? ? ? Anion Gap ? ?14 ? Estim Creat Clear Calc ? ?70.8 ? Estimated GFR ? ?> 60 ? Random Glucose ? ?95 ? Calcium ? ?9.0? D ? Total Bilirubin ? ?0.6 ? AST ? ?20 ? ALT ? ?14 ? Alkaline Phosphatase ? ?107 ? Troponin I High Sens ? ? ?6.9 Total Protein ? ?6.7 ? Albumin ? ?4.2 ? COVID-19 ([facility]) ? ? ? COVID-19 Clin Com ? 01/24/22 01/24/22 01/24/22 ? 02:00 02:00 07:48 MCV ? ? ?94.9 MCH ? ? ?32.6 MCHC ? ? ?34.3 RDW ? ? ?12.0 Plt Count ? ? ?189 MPV ? ? ?10.7 Immature Gran % (Auto) ? ? ?0.2 Neut % (Auto) ? ? ?77.8 H Lymph % (Auto) ? ? ?16.3 L [place] % (Auto) ? ? ?4.7 Eos % (Auto) ? ? ?0.3 Baso % (Auto) ? ? ?0.7 Lymph # (Auto) ? ? ?1.0 L [place] # (Auto) ? ? ?0.3 Eos # (Auto) ? ? ?0.0 Baso # (Auto) ? ? ?0.0 Abs Immat Gran (auto) ? ? ?0.01 Absolute Neuts (auto) ? ? ?4.8 Absolute Nucleated RBC ? ? ?0.000 Nucleated RBC % (auto) ? ? ?0.0 D-Dimer High Sensitivty ?< 150 ? ? Anion Gap ? ? ? Estim Creat Clear Calc ? ? ? Estimated GFR ? ? ? Random Glucose ? ? ? Calcium ? ? ? Total Bilirubin ? ? ? AST ? ? ? ALT ? ? ? Alkaline Phosphatase ? ? ? Troponin I High Sens ? ? ? Total Protein ? ? ? Albumin ? ? ? COVID-19 ([facility]) ? ?Negative ? COVID-19 Clin Com ? ?See Note ? ? 01/24/22 ? 07:48 MCV ? MCH ? MCHC ? RDW ? Plt Count ? MPV ? Immature Gran % (Auto) ? Neut % (Auto) ? Lymph % (Auto) ? [place] % (Auto) ? Eos % (Auto) ? Baso % (Auto) ? Lymph # (Auto) ? [place] # (Auto) ? Eos # (Auto) ? Baso # (Auto) ? Abs Immat Gran (auto) ? Absolute Neuts (auto) ? Absolute Nucleated RBC ? Nucleated RBC % (auto) ? D-Dimer High Sensitivty ? Anion Gap ?12 Estim Creat Clear Calc ?77.4 Estimated GFR ?> 60 Random Glucose ?125 H Calcium ?9.1 Total Bilirubin ? AST ? ALT ? Alkaline Phosphatase ? Troponin I High Sens ? Total Protein ? Albumin ? COVID-19 ([facility]) ? COVID-19 Clin Com ? US/US carotid duplex BI IMPRESSION: 1. RIGHT: Normal right internal carotid artery without atherosclerotic plaque or hemodynamically significant stenosis. ? 2. LEFT: Normal left internal carotid artery without atherosclerotic plaque or hemodynamically significant stenosis CT/CT head/brain wo con IMPRESSION: ? 1. No acute intracranial finding. 2. No fracture or malalignment of the cervical spine. echo: Conclusions: - The left ventricular systolic function is normal.? The ? calculated ejection fraction is 64% by biplane method. ? - No obvious valvular pathology seen on this study.? Findings Left Ventricle Normal left ventricular cavity size.? There is normal left ventricular wall thickness.? The left ventricular systolic function is normal.? The calculated ejection fraction is 64% by biplane method.? There is no evidence of regional wall motion abnormalities.? Diastolic function is normal for age. Discharge Plan Discharge Patient Disposition: Home Health Service Discharge Diagnosis: syncope -possible vasovagal. Up the thank you Referrals: Amador Mackenzie MD [Primary Care Provider] - 1 Week Discharge Medications: New acetaminophen 325 mg Tablet 650 mg PO Q6H PRN (Reason: Pain, Mild (Pain Scale 1-3)) Qty: 14 0RF meclizine 12.5 mg tablet 12.5 mg PO TID PRN (Reason: dizziness) Qty: 14 0RF Continued hydroxychloroquine 200 mg tablet 300 mg PO DAILY Qty: 45 3RF lorazepam [Ativan] 0.5 mg Tablet 0.5 - 1 mg PO DAILY PRN (Reason: Anxiety) tizanidine 4 mg tablet 1 - 2 tab PO NEEDED meloxicam 15 mg tablet 1 tab PO DAILY zolmitriptan 5 mg tablet 1 tab PO DAILY PRN (Reason: Migraine Headache) montelukast 10 mg tablet 1 tab PO DAILY ergocalciferol (vitamin D2) 1,250 mcg (50,000 unit) capsule 1 cap PO QWEEK topiramate 100 mg tablet 1 tab PO DAILY duloxetine 60 mg capsule,delayed release(DR/EC) 1 cap PO DAILY omega-3 fatty acids [Fish Oil Concentrate] 1,000 mg capsule 1,000 mg PO DAILY ipratropium-albuterol 0.5 mg-3 mg(2.5 mg base)/3 mL solution for nebulization 3 ml inhalation Q6-8H PRN (Reason: Dyspnea) albuterol sulfate 90 mcg/actuation HFA aerosol inhaler 2 puff inhalation Q6H PRN (Reason: Dyspnea) Excedrin Extra Strength 250-250-65 mg tablet 2 tab PO Q6H PRN (Reason: Dyspnea) valacyclovir [Valtrex] 500 mg tablet 500 mg PO DAILY Discharge Orders: Discharge Order (Routine); Ordered 01/27/22 Ordered By: Fantasma Cuevas Diet: Advance to usual diet Activity on Discharge: As tolerated Stand Alone Forms: Patient Portal Discharge page Care Plan Goals: Patient came to the hospital because of syncopal episode: Possible vasovagal versus benign positional vertigo: Patient orthostatics negative, CT head negative carotid seems fine also echo seems fine also-patient was given meclizine and given hydration and subsequently patient's condition seems to be improving. Patient is to follow-up out patiently with PCP for further management and workup if needed id. Patient seen by PT and recommended home PT. Health Concerns: As above. Plan of Treatment: As above. Assessment: As above.
--- NOTE | 2022-01-27 12:02 | W.MHC.F2F ---
Service Date Service Date: 01/27/22 Encounter Date of encounter: 01/27/22 Encounter: Syncopal episode Reasons for Services Signs and symptoms assessed: Dizziness Reason for nursing home: medication management, medication treatment and teach disease management Reason for physical therapy: home safety and mobility, therapeutic exercises, restore joint function, gait/transfer training, assess need for DME, ADL training, energy conservation and other MD Overseeing Care: Amador Mackenzie Homebound: Leaving the home is medically contraindicated at this time without the asist of a device and/or another person due th the listed conditions above and below. Reason homebound: weakness related to hospital stay Homebound supporting statement: Patient admitted to the hospital secondary to syncope, week posthospital is stay need help to go to appointments. Certification: Based on the above findings, I certify that this patient is confined to the home and needs intermittent nursing home care, physical therapy and/or speech therapy, or continues to need occupational therapy. The patient is under my care, and I have initiated the establishment of the plan of care. The patient will be followed by a physician who will periodically review the plan of care.
[2022-01-27] MEDS: DULoxetine HCl 60 MG CAPSULE.DR PO (12:12)
[2022-01-27] MEDS: Montelukast Sodium 10 MG TABLET PO (12:12)
[2022-01-27] MEDS: Hydroxychloroquine Sulfate 200 MG TABLET 300 MG PO (12:13)
[2022-01-27] MEDS: Topiramate 100 MG TABLET PO (12:14)
[2022-01-27] MEDS: Celecoxib 200 MG CAPSULE PO (12:14)
[2022-01-27] MEDS: Butalb/Acetamin/Caff 50/325/40 TABLET 1 TAB PO (12:14)
[2022-01-27] MEDS: valACYclovir HCL 500 MG TABLET PO (12:14)
[2022-01-27] MEDS: Meclizine HCl 25 MG TABLET PO (12:15)
[2022-01-27] MEDS: Enoxaparin Sodium 40 MG/0.4 ML SYRINGE SUBCUT (12:17)
[2022-01-27] MEDS: 0.9 % Sodium Chloride Flush 3 ML SYRINGE IVFLUSH (12:18)
[2022-01-27 12:22] VITALS: BP 115/58; PULSE 64; RESP 16; TEMP 36.6; O2SAT 99
--- NOTE | 2022-01-27 14:53 | MHC.CM.PN ---
Received notification that patient will be d/c'd home with [facility]. Patient has a rear insurance. [facility] is not able to accept patient. Referral has been boardcasted in [facility] to try and find a [facility] to accept patient. Continue to monitor for d/c needs.
== END 2022-01-27 14:53 | disposition home health service (06) ==
LOC: HO.ED 01-24 03:24 → HO.EDOVER 01-24 04:56 → HO.IMC 01-25 12:29 → HO.EDOVER 01-25 13:26
PROVIDERS: Admitting Provider Internal Medicine; Emergency Provider Emergency Medicine; PCP Family Medicine; Visit Provider Internal Medicine
DX: R55 Syncope and collapse (principal); R00.1 Bradycardia, unspecified; M54.2 Cervicalgia; M54.9 Dorsalgia, unspecified; R07.9 Chest pain, unspecified; R06.02 Shortness of breath; R51.9 Headache, unspecified; M32.9 Systemic lupus erythematosus, unspecified; F03.90 Unspecified dementia, unspecified severity, without behavioral disturbance, psychotic disturbance, mood disturbance, and anxiety; J45.909 Unspecified asthma, uncomplicated; F41.9 Anxiety disorder, unspecified; M35.00 Sjogren syndrome, unspecified; M79.7 Fibromyalgia; Z20.822 Contact with and (suspected) exposure to COVID-19; Z72.89 Other problems related to lifestyle; Z63.6 Dependent relative needing care at home; Z79.899 Other long term (current) drug therapy; Z79.51 Long term (current) use of inhaled steroids
CPT/HCPCS: 36415; 70450; 72125; 80048; 80053; 84484; 85025; 85379; 87635; 93005; 93306; 93880; 96361; 96372; 96374; 96375; 97116; 97163; 97167; 97530; 99205; 99219; 99285; J1650; J2405

== ENCOUNTER → 2022-12-20 10:01 | Outpatient (REF) | payer OTHER, MEDICAID, SELFPAY | LOC: HO.SL 10:01 | PROVIDERS: PCP Family Medicine; Visit Provider Psychiatry & Neurology Neurology | DX: G47.33 Obstructive sleep apnea (adult) (pediatric) (principal) | CPT/HCPCS: 95806 ==

== ENCOUNTER 2025-02-10 08:50 | Outpatient (AMB) | payer MEDICARE, OTHER, MEDICAID, SELFPAY ==
--- OUTSIDE RECORDS SUMMARY | 2025-02-05 23:59 | XMS_ITS | Continuity of Care Document ---
Author Organization [facility] Address [address] [place] [address]- Care Team Providers Care Greens Keeper Name Role Phone Amador Mackenzie MD Primary Care Physician Encounter [facility] [id number] Date(s): 01/29/25 - 02/05/25 [facility] [address] [place] [address]- Attending Physician: Amador Mackenzie MD Encounter Type: Office Visit Allergies, Adverse Reactions, Alerts Substance Criticality Severity Reaction Reaction Severity Status amoxicillin Eruption rash Active metoclopramide Not available A ctive dapiprazole ophthalmic Swell ing Itching Active Inapsine Unknown Active Ativan Unknown Active carBAMazepine Not available Ac tive LORazepam Unknown Active FLUoxetine Unknown Active risperiDONE Unknown Active penicillin rash Active perphenazine 1 Dyspnea Anaphylaxis Active hydrOXYzine Eruption Active cyclobenzaprine Unknown Acti ve sulfa drugs Unknown Active sulfa topicals Unknown Activ e Tegretol Not available Active Rev-Eyes swelling itching Act russel Atarax rash Active Trilafon stop breathing Activ e Reglan body gets stiff Acti ve Ephedrine SO4/Hydroxyzine HCl/Theophylline Eruption Active PROzac Unknown Active RisperDAL Unknown Active 1Outside Source Comment: %22stop breathing%22 Immunizations Given and Recorded Vaccine Date Status Refusal Reason influenza virus vaccine, inactivated 06/19/24 Gus rded influenza virus vaccine, inactivated 05/09/23 Gus rded influenza virus vaccine, inactivated 06/30/22 Gus rded influenza virus vaccine, inactivated 05/08/21 Gus rded influenza virus vaccine, inactivated 05/26/20 Give n influenza virus vaccine, inactivated 04/13/18 Gus rded influenza virus vaccine, inactivated 03/09/17 Gus rded influenza virus vaccine, inactivated 04/05/11 Give n SARS-CoV-2 (COVID-19) Ad26 vaccine 05/28/21 Record ed SARS-CoV-2 (COVID-19) Ad26 vaccine 12/03/20 Record ed pneumococcal 23-valent vaccine 05/20/19 Given Influenza Virus Vaccine (oldterm) 05/14/19 Recorde d tetanus/diphtheria/pertussis, acel(Tdap) 03/03/16 Recorded influenza virus vaccine, live 06/13/14 Recorded Varicella Virus Vaccine 05/21/07 Recorded tetanus-diphtheria toxoids (Td) 03/12/97 Recorded tetanus-diphtheria toxoids (Td) 11/27/86 Recorded hepatitis B adult vaccine 08/06/90 Recorded hepatitis B adult vaccine 03/05/90 Recorded hepatitis B adult vaccine 02/05/90 Recorded Measles/Mumps/Rubella Virus Vaccine 10/28/89 Recor ded Measles/Mumps/Rubella Virus Vaccine 04/29/78 Recor ded Measles/Mumps/Rubella Virus Vaccine 01/27/69 Recor ded Measles/Mumps/Rubella Virus Vaccine 06/29/66 Recor ded diphtheria/tetanus/pertussis, acel(DTaP) 03/30/67 Recorded diphtheria/tetanus/pertussis, acel(DTaP) 65 Recorded diphtheria/tetanus/pertussis, acel(DTaP) 65 Recorded diphtheria/tetanus/pertussis, acel(DTaP) 65 Recorded Poliovirus Vaccine, Inactivated 03/30/66 Recorded Poliovirus Vaccine, Inactivated 01/27/66 Recorded Poliovirus Vaccine, Inactivated 65 Recorded Poliovirus Vaccine, Inactivated 65 Recorded Poliovirus Vaccine, Inactivated 65 Recorded Medications budesonide-formoterol 160 mcg-4.5 mcg/inh inhalation aerosol with adapter Refills 0, Maintenance, 12/01/24 11:10:00 AM EDT Start Date: 12/01/24 Status: Ordered Repeat number: 1 CPAP Machine See Instructions, # 1 each, Maintenance, AutoCPAP 6-20 cm H20, use Daily when sleeping, 07/24/23 9:54:00 AM EST, Supply Start Date: 07/24/23 Status: Ordered Quantity: 1.0 Unit: each Repeat number: 1 Fish Oil By Mouth, Daily, 0 Refills, Maintenance, 02/13/22 3:41:00 PM EDT, Partial fill upon patient request if the prescription is for a schedule II opioid drug. Start Date: 02/13/22 Status: Ordered Repeat number: 1 hydroxychloroquine 200 mg oral tablet 300 mg, 1.5, tablet, By Mouth, Daily, # 45 tablet, Refills 5, Tot. Refills 5, Maintenance, :35:00 AM EST, Route to Pharmacy Electronically, [facility]/pharmacy #[id number], Partial fill upon patient request if the prescription is for a schedule II opioid drug., 167.5, cm, 04/28/21 13:15:00 EDT, Height Start Date: 06/24/21 Status: Ordered Quantity: 45.0 Unit: tablet Repeat number: 6 LORazepam 1 mg oral tablet 1 tablet, By Mouth, 2 times a day, PRN NEEDED FOR ANXIETY, # 60 tablet, 5 Refills, Maintenance, 10/15/24 6:16:00 AM EDT, [facility]/pharmacy #[id number], 170, cm, 10/14/24 9:40:00 EDT, Height, 60.3, kg, 04/19/23 13:31:00 EDT, Dry Weight Start Date: 10/15/24 Stop Date: 04/17/25 Status: Ordered Quantity: 60.0 Unit: tablet Repeat number: 6 lysine 500 mg oral capsule 1 capsule = 500 mg, By Mouth, 2 times a day, 0 Refills, Maintenance, 03/05/23 3:02:00 PM EDT, Partialfill upon patient request if the prescription is for a schedule II opioid drug. Start Date: 03/05/23 Status: Ordered Repeat number: 1 Megafood One a Day Women over 40 Megafood One a Day Women over 40, Refills 0, Maintenance, 12/27/17 2:15:46 PM EDT, Compound Start Date: 12/27/17 Status: Ordered Repeat number: 1 Multivitamin Daily, 0 Refills, Maintenance, 03/05/23 3:03:00 PM EDT, Partial fill upon patient request if the prescription is for a schedule II opioid drug. Start Date: 03/05/23 Status: Ordered Repeat number: 1 Probiotic Formula 1 capsule, By Mouth, Daily, 0 Refills, Maintenance, 10/07/18 11:20:15 AM EDT Start Date: 10/07/18 Status: Ordered Repeat number: 1 topiramate 100 mg oral tablet 1 tablet = 100 mg, By Mouth, Daily, 0 Refills, 03/05/23 2:59:00 PM EDT, Partial fill upon patient request if the prescription is for a schedule II opioid drug. Start Date: 03/05/23 Status: Ordered Repeat number: 1 Toprol XL 25 mg oral tablet, extended release 25 mg, 1, tablet, By Mouth, Daily, # 90 tablet, Refills 3, Tot. Refills 3, Maintenance, 02/06/24 11:33:00 AM EDT, Route to Pharmacy Electronically, [facility]/pharmacy #[id number], Partial fill upon patient request if the prescription is for a schedule II opioid drug., 170, cm, 10/02/23 13:14:00 EST, Height, 60.3, kg, 04/19/23 13:31:00 EDT, Dry Weight Start Date: 02/06/24 Status: Ordered Quantity: 90.0 Unit: tablet Repeat number: 4 triamcinolone topical 0.1% paste 1 application, By Mouth, 3 times a day, # 5 Gm, 2 Refills, Maintenance, 07/05/24 5:54:00 AM EST, [id number], 7, 1 APPLICATION BY MOUTH 3 TIMES A DAY, 170, cm, 04/09/24 11:41:00 EDT, Height, 60.3,kg, 04/19/23 13:31:00 EDT, Dry Weight Start Date: 07/05/24 Status: Ordered Quantity: 5.0 Unit: g Repeat number: 1 valACYclovir 500 mg oral tablet Refills 0, Maintenance, 10/02/23 1:13:00 PM EST, Partial fill upon patient request if the prescription is for a schedule II opioid drug. Start Date: 10/02/23 Status: Ordered Repeat number: 1 Ventolin HFA 108 mcg/inh inhalation aerosol with adapter 2 puffs, Inhalation, 4 times a day, PRN for wheezing, # 8 Gm, 2 Refills, Maintenance, 07/21/23 10:58:00 AM EST, Aerosol, [facility]/pharmacy #[id number], Partial fill upon patient request if the prescription is for a schedule II opioid drug., 170, cm, 07/18/23 10:58:00 EST, Height, 60.3, kg, 04/19/23 13:31:00 EDT, Dry Weight Start Date: 07/21/23 Status: Ordered Quantity: 8.0 Unit: g Repeat number: 3 ZOLMitriptan 5 mg oral tablet 1 tablet, By Mouth, Daily, PRN NEEDED FOR MIGRAINE, MAY REPEAT AFTER 2 HOURS. MAX 2/DAY, # 6 tablet, 5 Refills, Maintenance, 10/12/21 1:06:00 PM EDT, [id number], 167.5, cm, 04/28/21 13:15:00 EDT, Height Start Date: 10/12/21 Status: Ordered Quantity: 6.0 Unit: tablet Repeat number: 6 Problem List Condition Confirmation Course Effective Dates Status H ealth Status Informant Allergic rhinitis Confirmed Active Anxiety Confirmed Active Chronic diarrhea Confirmed Active Complement deficiency disease Confirmed 06/18/23 Active Depression Confirmed Active Family history of coronary artery disease 1 Confirmed Active Mixed incontinence Confirmed Active Migraines Confirmed Active Asthma, mild persistent Confirmed Active Obstructive sleep apnea of adult Confirmed 02/15/23 Active Osteopenia Confirmed Active Sjogren's syndrome, with ? autoimmune dysfunction Confirmed Active Systemic lupus erythematosus Confirmed Active Trochanteric bursitis of right hip Confirmed 02/18/24 Active Vaginal odor Confirmed Active 1mother 1st [place] age 42 Social History Social History Type Response Smoking Status Never smoker entered on: 11/26/13 Sex Sex Representation Female (finding) Patient Care team information Care Team Personnel Name: Avril PEREZ, Amador Milton Position: [facility] Physician - Primary Care Member Role: PCP Address: [address] [place] [id number] Telecom: Care Team Related Persons Name: MARLA FALLON Insurance Providers Guarantor name: ZANA FALLON Health Plan Information #: 1 Payer: MEDICARE B Payer Identifier: MARLIN Member Number: [id number] Group Number: [id number] Subscriber Identifier: [id number] Relationship to Subscriber: self Coverage Type: NA Coverage Verification Date: NA Telecom: NA Address: Health Plan Information #: 2 Payer: [employer] Payer Identifier: MRALIN Member Number: [id number] Group Number: [id number] Subscriber Identifier: [id number] Relationship to Subscriber: self Coverage Type: NA Coverage Verification Date: NA Telecom: NA Address: [facility] Plan Information #: 3 Payer: [employer] Payer Identifier: MARLIN Member Number: [id number] Group Number: [id number] Subscriber Identifier: [id number] Relationship to Subscriber: self Coverage Type: MEDICAID Coverage Verification Date: MARLIN Telecom: NA Address:
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
== END 2025-02-10 09:11 | disposition home or self-care (01) ==
LOC: HO.HSM 08:51
PROVIDERS: PCP Family Medicine; Referring Provider Family Medicine; Visit Provider Psychiatry & Neurology Neurology
DX: R55 Syncope and collapse (principal); G43.909 Migraine, unspecified, not intractable, without status migrainosus
CPT/HCPCS: 99214

== ENCOUNTER → 2025-02-10 08:50 | Outpatient (BNVA) | payer MEDICARE, OTHER, MEDICAID, SELFPAY | PROVIDERS: PCP Family Medicine; Referring Provider Family Medicine; Visit Provider Psychiatry & Neurology Neurology | DX: R55 Syncope and collapse (principal); G43.909 Migraine, unspecified, not intractable, without status migrainosus | CPT/HCPCS: 99212 ==

== ENCOUNTER 2025-07-01 08:47 | Outpatient (AMB) | payer MEDICARE, OTHER, MEDICAID, SELFPAY ==
--- OUTSIDE RECORDS SUMMARY | 2025-07-01 07:00 | XMS_ITS | Encounter Summary ---
Author Organization [facility] Address [address] [place] [address] Phone Care Team Providers Care Airbrush Artist Photography Name Role Phone Amador Mackenzie MD Primary Care Provider + Reason for Visit * Auth/Cert (Routine) Specialty Diagnoses / Procedures Referred By Contac t Referred To Contact Referral ID Status Reason Start Date Expiration Date Visits Re quested Visits Authorized [id number] 1 1 Encounter Details Date Type Department Care Team (Late st Contact Info) Description 07/01/2025 7:00 AM EST Hospital Encounter [facility] - [facility] [address] [place] [address] Kortney Hicks MD [address], [address] [place] [address] [email or web address] Social History Tobacco Use Types Packs/Day Years Used Date Smoking Tobacco: Never Smokeless Tobacco: Never Alcohol Use Standard Drinks/Week Comments Never 0 (1 standard drink = 0.6 oz pur e alcohol) Education Answer Date Recorded Are you interested in more education? Not on diane e 11/24/2022 Are you concerned about learning? Not on file 11/24/2022 No 11/24/2022 No 11/24/2022 Digital Access Answer Date Recorded No 12/25/2022 No 12/25/2022 Reliable internet access at home? Not on file 12/25/2022 Device with a working camera? Not on file Comments Unknown Sex and Gender Information Value Date Recorded Sex Assigned at Female 10/24/2021 10:04 PM EDT Legal Sex Female 9:41 PM EDT Gender Identity Female 10/24/2021 10:04 PM EDT Sexual Orientation Straight 10/24/2021 10 :04 PM EDT documented as of this encounter Plan of Treatment Upcoming Encounters Date Type Department Care Team (Late st Contact Info) Description 07/06/2025 8:30 AM EST Office Visit [facility] [address] [place] [address] Kortney Hicks MD [address], [address] [place] [address] [email or web address] Scheduled Orders Name Type Priority Associated Diagnoses Orde r Schedule DXA Screening Imaging Routine Osteoporosis of lumbar spine As Needed for 1 Occurrences starting 07/01/2025 until 07/01/2025 documented as of this encounter Visit Diagnoses Diagnosis Osteoporosis of lumbar spine documented in this encounter Care Teams Airbrush Artist Photography Relationship Specialty Start Date End Date Amador Mackenzie MD [address] [place] [id number] PCP - General Family Medicine 05/18/20 documented as of this encounter Additional Source Comments The information contained in this document represents components of the legal health record. It is not the complete legal health record.[facility]
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
--- OUTSIDE RECORDS SUMMARY | 2025-07-01 09:08 | XMS_ITS | Clinical Summary ---
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 Role Phone Amador Mackenzie MD Primary Care Provider + Allergies Active Allergy Reactions Criticality Noted Date Comments Amoxicillin Rash Low 07/25/2021 Hydroxyzine Hcl Rash Low 07/25/2021 Carbamazepine 04/10/2008 Cyclobenzaprine 07/01/2015 Fluoxetine Unknown 04/09/2008 Other 07/01/2015 Addarax, danyell Penicillins Rash Low 07/25/2021 Metoclopramide Hcl 07/25/2021 Body gets stiff Dapiprazole Itching,Swelling 07/25/2021 Risperidone Unknown 04/09/2008 Sulfa (Sulfonamide Antibiotics) 07/01/2015 Perphenazine Anaphylaxis,Shortne ss Of Breath High 07/25/2021 stop breathing Medications topiramate (TOPAMAX) 100 MG tabletIndication s:100 mg in am, 200 mg in pm Take by mouth daily. Indications: 100 mg in am, 200 mg in pm 1 Active ZOLMitriptan (ZOMIG) 5 MG tablet Take 1 tablet by mouth as needed. 1 Active Lactobacillus acidophilus (PROBIOTIC ORAL) Take by mouth daily. Active omega 3-xwd-osj-fish oil 1,000 mg (120 mg-180 mg) Cap Take 1 capsule by mouth daily. Active propylene glycol/peg 400/PF (SYSTANE ULTRA, PF, OPHT) Apply to eye 4 (four) times a day. Active DAILY MULTI-VITAMIN ORAL Take 1 tablet by mouth daily. [employer] brand Active LORazepam (ATIVAN) 1 MG tablet Take 1 mg by mouth nightly at bedtime. 3 Active metoprolol succinate (TOPROL-XL) 25 MG 24 hr tablet Take 1 tablet by mouth every morning. 3 Active albuterol 90 mcg/actuation inhaler Inhale 2 puffs into the lungs every 4 (four) hours as needed. 4 Active lysine HCL 500 mg TabIndications:O ther forms of systemic lupus erythematosus, unspecified organ involvement status,Mouth ulcers,NSAID long-term use TAKE 1 TABLET BY MOUTH TWICE A DAY NEEDED 180 tablet 3 5 Active hydroxychloroqui ne (PLAQUENIL) 200 mg tabletIndication s:Other forms of systemic lupus erythematosus, unspecified organ involvement status TAKE 1.5 TABLETS BY MOUTH DAILY. 135 tablet 3 5 Active alendronate (FOSAMAX) 70 MG tabletIndication s:Osteoporosis of lumbar spine Take 1 tablet (70 mg total) by mouth every 7 days. Take in the morning with a full glass of water, on an empty stomach, and do not take anything else by mouth or lie down for the next 30 min. 4 tablet 11 5 Active Active Problems Problem Noted Date Diagnosed Date Chronic left-sided thoracic back pain 06/19/2024 Assessment & Plan (06/19/2024 10:27 AM EST): Use warm packs alternating with cooling packs in addition to gentle stretching and muscle strengthening as tolerated with help of PT-formal referral provided. She may benefit from topical Arnica versus Voltaren versus Biofreeze versus medicated patches such as Salonpas or IcyHot patch. Pain of upper abdomen 06/19/2024 Assessment & Plan (06/19/2024 10:25 AM EST): Well-balanced nutritionally diet with proper hydration. Avoid large difficult to digest and spicy meals. Unclear in origin-possible indigestion versus gallstones versus GERD-abdominal ultrasound requested. NSAID long-term use 02/23/2024 Assessment & Plan (06/19/2024 9:40 AM EST): Take the lowest dose, with least frequency, for shortest time. Remember to take it always with food. Favor topical over oral preparations. Assessment & Plan (02/23/2024 8:03 PM EDT): Take the lowest dose, with least frequency, for shortest time. Remember to take it always with food. Favor topical over oral preparations. Trochanteric bursitis of right hip 02/18/2024 Assessment & Plan (02/23/2024 8:03 PM EDT): Use warm packs versus warm shower prior to gentle, regular exercises-examples with pictures and detailed instructions printed for home use. She declined formal PT today. She may benefit from topical gels/creams such as Arnica, Biofreeze, Voltaren versus medicated patches such as Salonpas or IcyHot patch. If symptoms progress despite above measures may need to consider local steroid injection. Hair loss 10/17/2023 Assessment & Plan (10/17/2023 12:11 PM EDT): I reviewed with her that it is most likely secondary to her tremendous stress response but to make sure that it is not contributed by thyroid dysfunction I took the liberty of checking her TSH today. Adhesive capsulitis of left shoulder 06/18/2023 Assessment & Plan (06/18/2023 1:32 PM EST): Use warm packs versus warm shower prior to gentle, regular exercises as educated by PT when started prior to it follow printed examples with pictures and detailed instructions. Avoid falls, injuries and overuse. Hypocomplementemia 06/18/2023 Assessment & Plan (03/16/2025 7:55 AM EDT): I have reviewed with Marlen that low C3 and C4 complements are not unusual in patients with systemic lupus erythematosus. It may be one of the reasons she developed that disease in the first place. Sometimes they are decreased at the time of disease flare though no additional signs of flare at this time. Assessment & Plan (10/13/2024 8:01 AM EDT): I have reviewed with Marlen that low C3 and C4 complements are not unusual in patients with systemic lupus erythematosus. It may be one of the reasons she developed that disease in the first place. Sometimes they are decreased at the time of disease flare though no additional signs of flare at this time. Assessment & Plan (06/19/2024 9:41 AM EST): I have reviewed with Marlen that low C3 and C4 complements are not unusual in patients with systemic lupus erythematosus. It may be one of the reasons she developed that disease in the first place. Sometimes they are decreased at the time of disease flare though no additional signs of flare at this time. Assessment & Plan (10/17/2023 10:51 AM EDT): I have reviewed with Mralen that low C3 and C4 complements are not unusual in patients with systemic lupus erythematosus. It may be one of the reasons she developed that disease in the first place. Sometimes they are decreased at the time of disease flare though no additional signs of flare at this time. Assessment & Plan (06/18/2023 1:43 PM EST): I have reviewed with Marlen that low C3 and C4 complements are not unusual in patients with systemic lupus erythematosus. It may be one of the reasons she developed that disease in the first place. Sometimes they are decreased at the time of disease flare though no additional signs of flare at this time. Osteoporosis of lumbar spine 02/15/2023 Assessment & Plan (03/16/2025 8:37 AM EDT): BMD from 01/25/2023 at [facility] revealed: L1-L4 T-score -2.9= osteoporosis, Total right hip T-score -1.5= osteopenia, Right femoral neck T-score -2.2= osteopenia-see details in media section of epic. Daily calcium vitamin D supplementation reviewed and strongly encouraged to the optimal. Continue daily weightbearing exercises 45-60 minutes. Fall and fracture prevention strategies reviewed and strongly encouraged. Pamphlet on bone preserving oral Fosamax previously she is afraid of provided after brief review in office. I have encouraged her to carefully try Fosamax first 0.5 tablet exactly as prescribed and if no side effects take the full tablet every 7 days on an empty stomach with full 8 ounces glass of plain water and remain upright x 30 minutes Assessment & Plan (10/13/2024 8:02 AM EDT): BMD from 01/25/2023 at [facility] revealed: L1-L4 T-score -2.9= osteoporosis, Total right hip T-score -1.5= osteopenia, Right femoral neck T-score -2.2= osteopenia-see details in media section of epic. Daily calcium vitamin D supplementation reviewed and strongly encouraged to the optimal. Continue daily weightbearing exercises 45-60 minutes. Fall and fracture prevention strategies reviewed and strongly encouraged. Pamphlet on bone preserving oral Fosamax previously she is afraid of provided after brief review in office. Assessment & Plan (06/19/2024 10:26 AM EST): BMD from 01/25/2023 at [facility] revealed: L1-L4 T-score -2.9= osteoporosis, Total right hip T-score -1.5= osteopenia, Right femoral neck T-score -2.2= osteopenia-see details in media section of epic. Daily calcium vitamin D supplementation reviewed and strongly encouraged to the optimal. Continue daily weightbearing exercises 45-60 minutes. Fall and fracture prevention strategies reviewed and strongly encouraged. Pamphlet on bone preserving oral Fosamax previously she is afraid of provided after brief review in office. Taking it at this time particularly in view of abdominal pain of unclear origin Assessment & Plan (02/23/2024 8:02 PM EDT): BMD from 01/25/2023 at [facility] revealed: L1-L4 T-score -2.9= osteoporosis, Total right hip T-score -1.5= osteopenia, Right femoral neck T-score -2.2= osteopenia-see details in media section of epic. Daily calcium vitamin D supplementation reviewed and strongly encouraged to the optimal. Continue daily weightbearing exercises 45-60 minutes. Fall and fracture prevention strategies reviewed and strongly encouraged. Pamphlet on bone preserving oral Fosamax provided again today after brief review in office. Assessment & Plan (10/17/2023 12:10 PM EDT): BMD from 01/25/2023 at [facility] revealed: L1-L4 T-score -2.9= osteoporosis, Total right hip T-score -1.5= osteopenia, Right femoral neck T-score -2.2= osteopenia-see details in media section of epic. Daily calcium vitamin D supplementation reviewed and strongly encouraged to the optimal. Continue daily weightbearing exercises 45-60 minutes. Fall and fracture prevention strategies reviewed and strongly encouraged. Pamphlet on bone preserving oral Fosamax provided today after brief review in office. Assessment & Plan (02/15/2023 10:59 AM EDT): Recent BMD ordered by Primary Care showed osteoporosis lumbar spine (t score - 2.9). Discussed Calcium, Vit D, (Vit D last year was excellent). Should discuss further treatment options with Primary Care. Obstructive sleep apnea of adult 02/15/2023 Assessment & Plan (02/15/2023 11:42 AM EDT): Reviewed recent (12/20/22) sleep study. Shows severe sleep apnea. Discussed relationship between sleep apnea and fibromyalgia sxs. Discussed that many of her FM sxs may zuhair when she starts treatment for NICOLE. Has requent gasping arousals. Try using chin strap. Suggested [facility] try [facility] [place] for earlier appointment. Irregular heart beat 11/02/2022 Flu vaccine need 06/30/2022 Advice given about COVID-19 virus infection 09/28 Assessment & Plan (10/29/2021 2:25 PM EDT): I reviewed with Marlen guidance from FDA and CDC regarding benefit from 3rd dose of COVID-19 vaccine after 5 months from the second that she received on . Other forms of systemic lupus erythematosus 06/30 Assessment & Plan (03/16/2025 8:36 AM EDT): Clinically and laboratory ruvalcaba appears stable Mild leukopenia for which I instructed her to get updated vaccination status and continue diligent hand hygiene. Carefully continue Plaquenil at 300 mg daily and follow closely with child nutrition director at least every 12 months. Daily sun protection all year round. Proper hydration. Well-balanced nutritionally diet. Sleep hygiene. Avoid sick contacts, falls or injuries. Adhere to age-appropriate screenings and preventive strategies. Gentle, regular exercise routine as tolerated preferably 45-60 minutes walking versus other aerobic exercising of choice. Get the new set of lab work prior to next visit-standing orders in [facility]. Call with questions or problems otherwise return in 5 months for follow-up Assessment & Plan (10/14/2024 9:28 AM EDT): Clinically and laboratory ruvalcaba appears stable. Carefully continue Plaquenil at 300 mg daily and follow closely with child nutrition director at least every 12 months. Daily sun protection all year round. Proper hydration. Well-balanced nutritionally diet. Sleep hygiene. Avoid sick contacts, falls or injuries. Adhere to age-appropriate screenings and preventive strategies. Gentle, regular exercise routine as tolerated preferably 45-60 minutes walking versus other aerobic exercising of choice. Get the new set of lab work prior to next visit-standing orders in [facility]. Call with questions or problems otherwise return in 5 months for follow-up Assessment & Plan (06/19/2024 9:40 AM EST): Clinically and laboratory ruvalcaba appears stable. Carefully continue Plaquenil at 300 mg daily and follow closely with child nutrition director at least every 12 months. Daily sun protection all year round. Proper hydration. Well-balanced nutritionally diet. Sleep hygiene. Avoid sick contacts, falls or injuries. Adhere to age-appropriate screenings and preventive strategies. Gentle, regular exercise routine as tolerated preferably 45-60 minutes walking versus other aerobic exercising of choice. Get the new set of lab work prior to next visit-standing orders in [facility]. Call with questions or problems otherwise return in 4 months for follow-up Assessment & Plan (02/23/2024 7:59 PM EDT): Clinically and laboratory ruvalcaba appears stable. Carefully continue Plaquenil at 300 mg daily and follow closely with child nutrition director at least every 12 months. Daily sun protection all year round. Proper hydration. Well-balanced nutritionally diet. Sleep hygiene. Avoid sick contacts, falls or injuries. Adhere to age-appropriate screenings and preventive strategies. Gentle, regular exercise routine as tolerated preferably 45-60 minutes walking versus other aerobic exercising of choice. Get the new set of lab work prior to next visit-standing orders in [facility]. Call with questions or problems otherwise return in 4 months for follow-up Assessment & Plan (10/17/2023 12:06 PM EDT): She admits that today is not a good day but she also worries and becomes emotional when reports to me about her mother's hospitalization due to acute CHF exacerbation. Clinically and laboratory ruvalcaba appears stable. Carefully continue Plaquenil at 300 mg daily and follow closely with child nutrition director at least every 12 months. Daily sun protection all year round. Proper hydration. Well-balanced nutritionally diet. Sleep hygiene. Avoid sick contacts, falls or injuries. Adhere to age-appropriate screenings and preventive strategies. Gentle, regular exercise routine as tolerated preferably 45-60 minutes walking versus other aerobic exercising of choice. Get the new set of lab work prior to next visit-standing orders in [facility]. Call with questions or problems otherwise return in 4 months for follow-up Assessment & Plan (06/18/2023 1:33 PM EST): Carefully continue Plaquenil at 300 mg daily and follow closely with child nutrition director at least every 12 months. Daily sun protection all year round. Proper hydration. Well-balanced nutritionally diet. Sleep hygiene. Avoid sick contacts, falls or injuries. Adhere to age-appropriate screenings and preventive strategies. Gentle, regular exercise routine as tolerated preferably 45-60 minutes walking versus other aerobic exercising of choice. Get the new set of lab work prior to next visit-standing orders in [facility]. Call with questions or problems otherwise return in 4 months for follow-up Assessment & Plan (02/15/2023 10:56 AM EDT): Hx of SLE on Plaquenil. Reviewed recent labs. All normal. No signs of active lupus at present. Assessment & Plan (11/02/2022 11:10 AM EDT): Carefully continue Plaquenil at 300 mg daily and follow closely with child nutrition director at least every 12 months. Daily sun protection all year round. Proper hydration. Well-balanced nutritionally diet. Sleep hygiene. Avoid sick contacts, falls or injuries. Adhere to age-appropriate screenings and preventive strategies. Gentle, regular exercise routine as tolerated preferably 45-60 minutes walking versus other aerobic exercising of choice. Get the new set of lab work prior to next visit-standing orders in [facility]. Call with questions or problems otherwise return in 3 months for follow-up Assessment & Plan (06/30/2022 10:16 AM EST): Carefully continue Plaquenil at 300 mg daily and follow closely with child nutrition director at least every 12 months. Daily sun protection all year round. Proper hydration. Well-balanced nutritionally diet. Sleep hygiene. Avoid sick contacts, falls or injuries. Adhere to age-appropriate screenings and preventive strategies. Gentle, regular exercise routine as tolerated preferably 45-60 minutes walking versus other aerobic exercising of choice. Get the new set of lab work prior to next visit-standing orders in [facility]. Call with questions or problems otherwise return in 3 months for follow-up Assessment & Plan (04/11/2022 11:36 AM EDT): Carefully continue Plaquenil at 300 mg daily and follow closely with child nutrition director at least every 12 months. Daily sun protection all year round. Proper hydration. Well-balanced nutritionally diet. Sleep hygiene. Avoid sick contacts, falls or injuries. Adhere to age-appropriate screenings and preventive strategies. Gentle, regular exercise routine as tolerated preferably 45-60 minutes walking versus other aerobic exercising of choice. Get the new set of lab work prior to next visit-standing orders in [facility]. Call with questions or problems otherwise return in 3 months for follow-up Assessment & Plan (10/24/2021 11:09 AM EDT): Carefully continue Plaquenil at 300 mg daily and follow closely with child nutrition director at least every 12 months. Daily sun protection all year round. Proper hydration. Well-balanced nutritionally diet. Sleep hygiene. Avoid sick contacts, falls or injuries. Adhere to age-appropriate screenings and preventive strategies. Gentle, regular exercise routine as tolerated preferably 45-60 minutes walking versus other aerobic exercising of choice. Get the new set of lab work today and call with questions or problems otherwise return in 3 months for follow-up Assessment & Plan (07/27/2021 10:18 PM EST): Carefully continue Plaquenil at 300 mg daily and follow closely with child nutrition director at least every 12 months. Daily sun protection all year round. Proper hydration. Well-balanced nutritionally diet. Sleep hygiene. Avoid sick contacts, falls or injuries. Adhere to age-appropriate screenings and preventive strategies. Gentle, regular exercise routine as tolerated preferably 45-60 minutes walking versus other aerobic exercising of choice. Get the new set of lab work today and call with questions or problems otherwise return in 3 months for follow-up Mouth ulcers 07/27/2021 Assessment & Plan (02/18/2024 10:00 AM EDT): Continue taking lysine 500 mg twice daily that decreases the frequency and severity of mucosal ulcers. Keep well-hydrated. Avoid concentrated sugars, spicy and acidic products in the diet Assessment & Plan (11/02/2022 11:11 AM EDT): Continue taking lysine 500 mg twice daily that decreases the frequency and severity of mucosal ulcers. Keep well-hydrated. Avoid concentrated sugars, spicy and acidic products in the diet Assessment & Plan (03/20/2022 9:02 AM EDT): Continue taking lysine 500 mg twice daily hoping to decrease the frequency and severity of mucosal ulcers. Keep well-hydrated. Avoid concentrated sugars, spicy and acidic products in the diet Assessment & Plan (10/29/2021 2:22 PM EDT): Continue taking lysine 500 mg twice daily hoping to decrease the frequency and severity of mucosal ulcers. Keep well-hydrated. Avoid concentrated sugars, spicy and acidic products in the diet Assessment & Plan (07/27/2021 10:20 PM EST): Are taking niacin 500 mg hoping to decrease the frequency and severity of mucosal ulcers. Keep well-hydrated. Avoid concentrated sugars, spicy and acidic products in the diet Sjogren syndrome, unspecified 07/27/2021 Assessment & Plan (03/16/2025 7:54 AM EDT): Keep well-hydrated. Avoid spicy and acidic foods. Continue twice daily lysine 500 mg and Systane eyedrops 2-3 times daily as needed. Diligent eyes and mouth hygiene. Regular ocular and dental checkups. Assessment & Plan (10/13/2024 8:01 AM EDT): Keep well-hydrated. Avoid spicy and acidic foods. Continue twice daily lysine 500 mg and Systane eyedrops 2-3 times daily as needed. Diligent eyes and mouth hygiene. Regular ocular and dental checkups. Assessment & Plan (06/19/2024 9:40 AM EST): Keep well-hydrated. Avoid spicy and acidic foods. Continue twice daily lysine 500 mg and Systane eyedrops 2-3 times daily as needed. Diligent eyes and mouth hygiene. Regular ocular and dental checkups. Assessment & Plan (02/23/2024 8:01 PM EDT): Keep well-hydrated. Avoid spicy and acidic foods. Continue twice daily lysine 500 mg and Systane eyedrops 2-3 times daily as needed. Diligent eyes and mouth hygiene. Regular ocular and dental checkups. Assessment & Plan (10/17/2023 10:50 AM EDT): Keep well-hydrated. Avoid spicy and acidic foods. Diligent eyes and mouth hygiene. Regular ocular and dental checkups. Assessment & Plan (06/18/2023 9:26 AM EST): Keep well-hydrated. Avoid spicy and acidic foods. Diligent eyes and mouth hygiene. Regular ocular and dental checkups. Assessment & Plan (11/02/2022 11:12 AM EDT): Keep well-hydrated. Avoid spicy and acidic foods. Diligent eyes and mouth hygiene. Regular ocular and dental checkups. Assessment & Plan (06/30/2022 10:18 AM EST): Keep well-hydrated. Avoid spicy and acidic foods. Diligent eyes and mouth hygiene. Regular ocular and dental checkups. Assessment & Plan (03/20/2022 9:04 AM EDT): Keep well-hydrated. Avoid spicy and acidic foods. Diligent eyes and mouth hygiene. Regular ocular and dental checkups. Assessment & Plan (10/24/2021 11:06 AM EDT): Keep well-hydrated. Avoid spicy and acidic foods. Diligent eyes and mouth hygiene. Regular ocular and dental checkups. Assessment & Plan (07/27/2021 10:20 PM EST): Keep well-hydrated. Avoid spicy and acidic foods. Diligent eyes and mouth hygiene. Regular ocular and dental checkups. Fibromyalgia syndrome 07/27/2021 Assessment & Plan (03/16/2025 7:55 AM EDT): We discussed the diagnosis of fibromyalgia, its natural history, and treatment. Specifically, we discussed that treatment requires many interventions and recognition that we are often unable to get patients completely pain free. Management of fibromyalgia requires patient engagement to address any underlying depression, anxiety, or sleep disorder. Further, patients are encouraged to engage in regular physical activity. Some studies have suggested that Anirudh Chi is effective. Other physical activity may including water-based aerobics, regular walking, biking, swimming, gentle yoga, Pilates etc. In terms of pharmacotherapy, there are many options, including tricyclic antidepressants, duloxetine, gabapentin or pregabalin, and cyclobenzaprine as well as other similar medications to those listed. In this case, the patient might try to continue carefully on Cymbalta and focus more of nonpharmacologic measures including mindfulness as described in the book written by Dr Lico Olivier [facility] I provided her with pamphlet on fibromyalgia with useful websites for patients suffering from it along with several other books to self improve management strategies. Assessment & Plan (10/17/2023 10:50 AM EDT): We discussed the diagnosis of fibromyalgia, its natural history, and treatment. Specifically, we discussed that treatment requires many interventions and recognition that we are often unable to get patients completely pain free. Management of fibromyalgia requires patient engagement to address any underlying depression, anxiety, or sleep disorder. Further, patients are encouraged to engage in regular physical activity. Some studies have suggested that Anirudh Chi is effective. Other physical activity may including water-based aerobics, regular walking, biking, swimming, gentle yoga, Pilates etc. In terms of pharmacotherapy, there are many options, including tricyclic antidepressants, duloxetine, gabapentin or pregabalin, and cyclobenzaprine as well as other similar medications to those listed. In this case, the patient might try to continue carefully on Cymbalta and focus more of nonpharmacologic measures including mindfulness as described in the book written by Dr Lico Griffiths [facility] I provided her with pamphlet on fibromyalgia with useful websites for patients suffering from it along with several other books to self improve management strategies. Assessment & Plan (06/18/2023 9:25 AM EST): We discussed the diagnosis of fibromyalgia, its natural history, and treatment. Specifically, we discussed that treatment requires many interventions and recognition that we are often unable to get patients completely pain free. Management of fibromyalgia requires patient engagement to address any underlying depression, anxiety, or sleep disorder. Further, patients are encouraged to engage in regular physical activity. Some studies have suggested that Anirudh Chi is effective. Other physical activity may including water-based aerobics, regular walking, biking, swimming, gentle yoga, Pilates etc. In terms of pharmacotherapy, there are many options, including tricyclic antidepressants, duloxetine, gabapentin or pregabalin, and cyclobenzaprine as well as other similar medications to those listed. In this case, the patient might try to continue carefully on Cymbalta and focus more of nonpharmacologic measures including mindfulness as described in the book written by Dr Lico Griffiths [facility] I provided her with pamphlet on fibromyalgia with useful websites for patients suffering from it along with several other books to self improve management strategies. Assessment & Plan (02/15/2023 11:44 AM EDT): Prominent FM sxs. Almost certainly at least partly related to sleep apnea. Once treated for sleep apnea, would suggest adding nighttime dose of either tizanidine or baclofen to improve sleep quality. Assessment & Plan (11/02/2022 11:11 AM EDT): We discussed the diagnosis of fibromyalgia, its natural history, and treatment. Specifically, we discussed that treatment requires many interventions and recognition that we are often unable to get patients completely pain free. Management of fibromyalgia requires patient engagement to address any underlying depression, anxiety, or sleep disorder. Further, patients are encouraged to engage in regular physical activity. Some studies have suggested that Anirudh Chi is effective. Other physical activity may including water-based aerobics, regular walking, biking, swimming, gentle yoga, Pilates etc. In terms of pharmacotherapy, there are many options, including tricyclic antidepressants, duloxetine, gabapentin or pregabalin, and cyclobenzaprine as well as other similar medications to those listed. In this case, the patient might try to continue carefully on Cymbalta and focus more of nonpharmacologic measures including mindfulness as described in the book written by Dr Lico szymanski I provided her with pamphlet on fibromyalgia with useful websites for patients suffering from it along with several other books to self improve management strategies. Assessment & Plan (06/30/2022 10:16 AM EST): We discussed the diagnosis of fibromyalgia, its natural history, and treatment. Specifically, we discussed that treatment requires many interventions and recognition that we are often unable to get patients completely pain free. Management of fibromyalgia requires patient engagement to address any underlying depression, anxiety, or sleep disorder. Further, patients are encouraged to engage in regular physical activity. Some studies have suggested that Anirudh Chi is effective. Other physical activity may including water-based aerobics, regular walking, biking, swimming, gentle yoga, Pilates etc. In terms of pharmacotherapy, there are many options, including tricyclic antidepressants, duloxetine, gabapentin or pregabalin, and cyclobenzaprine as well as other similar medications to those listed. In this case, the patient might try to continue carefully on Cymbalta and focus more of nonpharmacologic measures including mindfulness as described in the book written by Dr Lico szymanski I provided her with pamphlet on fibromyalgia with useful websites for patients suffering from it along with several other books to self improve management strategies. Assessment & Plan (04/11/2022 11:37 AM EDT): We discussed the diagnosis of fibromyalgia, its natural history, and treatment. Specifically, we discussed that treatment requires many interventions and recognition that we are often unable to get patients completely pain free. Management of fibromyalgia requires patient engagement to address any underlying depression, anxiety, or sleep disorder. Further, patients are encouraged to engage in regular physical activity. Some studies have suggested that Anirudh Chi is effective. Other physical activity may including water-based aerobics, regular walking, biking, swimming, gentle yoga, Pilates etc. In terms of pharmacotherapy, there are many options, including tricyclic antidepressants, duloxetine, gabapentin or pregabalin, and cyclobenzaprine as well as other similar medications to those listed. In this case, the patient might try to continue carefully on Cymbalta and focus more of nonpharmacologic measures including mindfulness as described in the book written by Dr Lico szymanski I provided her with pamphlet on fibromyalgia with useful websites for patients suffering from it along with several other books to self improve management strategies. Assessment & Plan (07/27/2021 10:23 PM EST): We discussed the diagnosis of fibromyalgia, its natural history, and treatment. Specifically, we discussed that treatment requires many interventions and recognition that we are often unable to get patients completely pain free. Management of fibromyalgia requires patient engagement to address any underlying depression, anxiety, or sleep disorder. Further, patients are encouraged to engage in regular physical activity. Some studies have suggested that Anirudh Chi is effective. Other physical activity may including water-based aerobics, regular walking, biking, swimming, gentle yoga, Pilates etc. In terms of pharmacotherapy, there are many options, including tricyclic antidepressants, duloxetine, gabapentin or pregabalin, and cyclobenzaprine as well as other similar medications to those listed. In this case, the patient might try to continue carefully on Cymbalta and focus more of nonpharmacologic measures including mindfulness as described in the book written by Dr Lico dotye nessa I provided her with pamphlet on fibromyalgia with useful websites for patients suffering from it along with several other books to self improve management strategies.. Vitamin D insufficiency 07/27/2021 Assessment & Plan (06/30/2022 10:18 AM EST): Continue weekly vitamin D supplementation as prescribed to optimize serum level at 40-45 ng/ml Assessment & Plan (10/29/2021 2:21 PM EDT): Continue weekly vitamin D supplementation as prescribed to optimize serum level at 40-45 ng/ml Assessment & Plan (07/27/2021 10:17 PM EST): Continue weekly vitamin D 50,000 units to keep optimal serum concentration at 40-45 ng/ml. Long-term use of Plaquenil 07/27/2021 Assessment & Plan (10/14/2024 9:29 AM EDT): Take exactly as prescribed. Proper hydration. Daily sun protection all year round while taking Plaquenil. Follow-up with child nutrition director while taking Plaquenil at least once every 12 months-next checkup scheduled in October 2024. Assessment & Plan (06/19/2024 9:40 AM EST): Take exactly as prescribed. Proper hydration. Daily sun protection all year round while taking Plaquenil. Follow-up with child nutrition director while taking Plaquenil at least once every 12 months-next checkup scheduled in February 2024. Assessment & Plan (02/23/2024 8:01 PM EDT): Take exactly as prescribed. Proper hydration. Daily sun protection all year round while taking Plaquenil. Follow-up with child nutrition director while taking Plaquenil at least once every 12 months-next checkup scheduled in February 2024. Assessment & Plan (10/17/2023 12:07 PM EDT): Take exactly as prescribed. Proper hydration. Daily sun protection all year round while taking Plaquenil. Follow-up with child nutrition director while taking Plaquenil at least once every 12 months-next checkup scheduled in October 2023. Assessment & Plan (06/18/2023 1:34 PM EST): Take exactly as prescribed. Proper hydration. Daily sun protection all year round while taking Plaquenil. Follow-up with child nutrition director while taking Plaquenil at least once every 12 months. Assessment & Plan (02/15/2023 11:00 AM EDT): Continue as prescribed. Reschedule ophtalmologist's checkup due to COVID-19 cancellation Daily sun protection all year round. Assessment & Plan (11/02/2022 11:11 AM EDT): Exactly as prescribed. Proper hydration. Daily sun protection all year round while taking Plaquenil. Follow-up with child nutrition director while taking Plaquenil at least once every 12 months. Assessment & Plan (06/30/2022 10:17 AM EST): Exactly as prescribed. Proper hydration. Daily sun protection all year round while taking Plaquenil. Follow-up with child nutrition director while taking Plaquenil at least once every 12 months. Assessment & Plan (03/20/2022 9:02 AM EDT): Exactly as prescribed. Proper hydration. Daily sun protection all year round while taking Plaquenil. Follow-up with child nutrition director while taking Plaquenil at least once every 12 months. Assessment & Plan (10/24/2021 11:08 AM EDT): Exactly as prescribed. Proper hydration. Daily sun protection all year round while taking Plaquenil. Follow-up with child nutrition director while taking Plaquenil at least once every 12 months. Assessment & Plan (07/27/2021 10:26 PM EST): Exactly as prescribed. Proper hydration. Daily sun protection all year round while taking Plaquenil. Follow-up with child nutrition director while taking Plaquenil at least once every 12 months. Urinary, incontinence, stress female 07/27/2021 Assessment & Plan (07/27/2021 10:24 PM EST): Encouraged to do regular Kegel's exercises and consider urogynecology checkup if not better despite maximal efforts Cold sensitivity 07/27/2021 Assessment & Plan (07/27/2021 10:27 PM EST): Keep warm, dressing layers. Avoid prolonged cold exposure and ill effects of multiple stresses. Raynaud's disease without gangrene 07/27/2021 Assessment & Plan (03/16/2025 7:54 AM EDT): Keep warm, dress in layers. Optimize stress management strategies. Avoid vasoconstrictors in OTC products for cold/flu and sinus. Assessment & Plan (10/13/2024 8:01 AM EDT): Keep warm, dress in layers. Optimize stress management strategies. Avoid vasoconstrictors in OTC products for cold/flu and sinus. Assessment & Plan (06/19/2024 9:40 AM EST): Keep warm, dress in layers. Optimize stress management strategies. Avoid vasoconstrictors in OTC products for cold/flu and sinus. Assessment & Plan (02/18/2024 10:01 AM EDT): Keep warm, dress in layers. Optimize stress management strategies. Avoid vasoconstrictors in OTC products for cold/flu and sinus. Assessment & Plan (10/17/2023 10:50 AM EDT): Keep warm, dress in layers. Optimize stress management strategies. Avoid vasoconstrictors in OTC products for cold/flu and sinus. Assessment & Plan (06/18/2023 9:25 AM EST): Keep warm, dress in layers. Optimize stress management strategies. Avoid vasoconstrictors in OTC products for cold/flu and sinus. Assessment & Plan (11/02/2022 11:12 AM EDT): Keep warm, dress in layers. Optimize stress management strategies. Avoid vasoconstrictors in OTC products for cold/flu and sinus. Assessment & Plan (06/30/2022 10:17 AM EST): Keep warm, dress in layers. Optimize stress management strategies. Avoid vasoconstrictors in OTC products for cold/flu and sinus. Assessment & Plan (10/24/2021 11:06 AM EDT): Keep warm, dress in layers. Optimize stress management strategies. Avoid vasoconstrictors in OTC products for cold/flu and sinus. Assessment & Plan (07/27/2021 10:16 PM EST): Keep warm, dress in layers. Optimize stress management strategies. Avoid vasoconstrictors in OTC products for cold/flu and sinus such as epinephrine, metanephrine, ephedrine etc. Resolved Problems Problem Noted Date Diagnosed Date Resolved Date Influenza 06/30/2022 06/30/2022 NSAID long-term use 07/27/2021 11/03/19 Assessment & Plan (03/20/2022 9:03 AM EDT): Take the lowest dose, with least frequency, for shortest time. Remember to take it always with food. Favor topical over oral preparations. Assessment & Plan (07/27/2021 10:26 PM EST): Take the lowest dose, with least frequency, for shortest time. Remember to take it always with food. Favor topical over oral preparations. Osteopenia of lumbar spine 07/27/2021 0 02/23/2024 Assessment & Plan (02/18/2024 10:00 AM EDT): Avoid falls, injuries. Daily weightbearing exercises. Proper calcium and vitamin D supplementation. May need to consider bone preserving therapy if unable to comply with above measures to prevent development of osteoporosis and subsequent bony fractures. Assessment & Plan (11/02/2022 11:12 AM EDT): Avoid falls, injuries. Daily weightbearing exercises. Proper calcium and vitamin D supplementation. May need to consider bone preserving therapy if unable to comply with above measures to prevent development of osteoporosis and subsequent bony fractures. Assessment & Plan (06/30/2022 10:17 AM EST): Avoid falls, injuries. Daily weightbearing exercises. Proper calcium and vitamin D supplementation. May need to consider bone preserving therapy if unable to comply with above measures to prevent development of osteoporosis and subsequent bony fractures. Assessment & Plan (03/20/2022 9:03 AM EDT): Avoid falls, injuries. Daily weightbearing exercises. Proper calcium and vitamin D supplementation. May need to consider bone preserving therapy if unable to comply with above measures to prevent development of osteoporosis and subsequent bony fractures. Assessment & Plan (10/24/2021 11:07 AM EDT): Avoid falls, injuries. Daily weightbearing exercises. Proper calcium and vitamin D supplementation. May need to consider bone preserving therapy if unable to comply with above measures to prevent development of osteoporosis and subsequent bony fractures. Assessment & Plan (07/27/2021 10:25 PM EST): Avoid falls, injuries. Daily weightbearing exercises. Proper calcium and vitamin D supplementation. May need to consider bone preserving therapy if unable to comply with above measures to prevent development of osteoporosis and subsequent bony fractures. Encounters Date Type Department Care Team Description 07/01/2025 7:00 AM EST Hospital Encounter [facility] - [address] [address] Kortney Hicks MD from Last 3 Months Immunizations Immunization Administration Dates Next Due INFLUENZA, SPLIT VIRUS, TRIVALENT PF 06/19/2024 Influenza Quadrivalent Preservative Free IM 08/2021 Family History Medical History Relation Comments Arthritis Mother Hypertension Mother Pacemaker Mother Stroke Mother Relation Status Comments Mother Social History Tobacco Use Types Packs/Day Years Used Date Smoking Tobacco: Never Smokeless Tobacco: Never Tobacco Cessation:Counseling Given: Not Answered Alcohol Use Standard Drinks/Week Comments Never 0 [...] Orientation Straight 10/24/2021 10 :04 PM EDT Last Filed Vital Signs Vital Sign Reading Time Taken Comments Blood Pressure 108/62 03/16/2025 7:51 AM EDT Pulse 111 03/16/2025 7:51 AM EDT Temperature - - Respiratory Rate 16 06/18/2023 8:58 AM EST Oxygen Saturation 99% 03/16/2025 7:51 AM EDT Inhaled Oxygen Concentration - - Weight 60.2 kg (132 lb 12.8 oz) 03/16/2025 7:51 AM EDT Height 168.9 cm (5' 6.5 ) 03/16/2025 7:51 AM EDT Body Mass Index 21.12 03/16/2025 7:51 AM EDT Plan of Treatment Upcoming Encounters Date Type Department Care Team (Late st Contact Info) Description 07/06/2025 8:30 AM EST Office Visit [facility] Rhe[facility] [address] [place] [address] Kortney Hicks MD [address] [facility], [address] [place] [address] [email or web address] Health Maintenance Due Date Last Done Comments LIPID PANEL 1965 MENINGOCOCCAL VACCINES (ACWY) (1 - Risk 2-dose series) 1967 MENINGOCOCCAL VACCINES (B) (1 of 4 - Increased Risk) 1975 DEPRESSION SCREENING 1977 HEPATITIS C SCREENING 1983 HIV ONE-TIME SCREENING (18-65 YEARS) 1983 ZOSTER VACCINES (1 of 2) 1984 PAP SMEAR 1986 COLOGUARD 2010 COLONOSCOPY 2010 COLORECTAL CANCER SCREENING 2010 FIT TEST 2010 FOBT 2010 SIGMOIDOSCOPY 2010 VIRTUAL COLONOSCOPY 2010 RSV VACCINE (1 - Risk 50-74 years 1-dose series) 2015 PNEUMOCOCCAL VACCINES (50+ years) (2 of 2 - PCV) 05/20/2020 05/20/2019 MAMMOGRAM 11/08/2023 11/07/2021 INFLUENZA VACCINE (#1) 2025 , 05/09/2023, 06/30/2022, Additional history exists COVID-19 VACCINE (3 - 2024- season) 2025 05/28/2021, 12/03/2020 Adult Td,Tdap Booster 03/03/2026 03/03/2016 , 03/12/1997, 11/27/1986, Additional history exists SMOKING STATUS SCREENING (Once After 26 Yrs) Completed 03/16/2025 HEPATITIS A VACCINES Aged Out No long er eligible based on patient's age to complete this topic HIB VACCINES Aged Out No longer eligi ble based on patient's age to complete this topic Medical Devices Not on file Procedures Procedure Name Priority Date/Time Associated Diagnosis Comments TOTAL PROTEIN CREATININE RATIO, RANDOM URINE Routine 06/29/2025 8:55 AM EST Other forms of systemic lupus erythematosus, unspecified organ involvement status Sjogren syndrome, unspecified Long-term use of Plaquenil CBC AND DIFFERENTIAL Routine 06/29/2025 8:41 AM EST Other forms of systemic lupus erythematosus, unspecified organ involvement status Sjogren syndrome, unspecified Long-term use of Plaquenil COMPREHENSIVE METABOLIC PANEL (CMP) Routine 06/29/2025 8:41 AM EST Other forms of systemic lupus erythematosus, unspecified organ involvement status Sjogren syndrome, unspecified Long-term use of Plaquenil C-REACTIVE PROTEIN (CRP) Routine 06/29/2025 8:41 AM EST Other forms of systemic lupus erythematosus, unspecified organ involvement status Sjogren syndrome, unspecified Long-term use of Plaquenil SEDIMENTATION RATE (ESR) Routine 06/29/2025 8:41 AM EST Other forms of systemic lupus erythematosus, unspecified organ involvement status Sjogren syndrome, unspecified Long-term use of Plaquenil CBC AND DIFFERENTIAL Routine 06/29/2025 8:41 AM EST Other forms of systemic lupus erythematosus, unspecified organ involvement status Sjogren syndrome, unspecified Long-term use of Plaquenil COMPLEMENT C3 Routine 06/29/2025 8:41 AM EST Other forms of systemic lupus erythematosus, unspecified organ involvement status Sjogren syndrome, unspecified Long-term use of Plaquenil Hypocomplementemia COMPLEMENT C4 Routine 06/29/2025 8:41 AM EST Other forms of systemic lupus erythematosus, unspecified organ involvement status Sjogren syndrome, unspecified Long-term use of Plaquenil Hypocomplementemia CREATINE KINASE (CK) Routine 06/29/2025 8:41 AM EST Other forms of systemic lupus erythematosus, unspecified organ involvement status Sjogren syndrome, unspecified Long-term use of Plaquenil DOUBLE STRANDED DNA ANTIBODIES Routine 06/29/2025 8:41 AM EST Other forms of systemic lupus erythematosus, unspecified organ involvement status Sjogren syndrome, unspecified Long-term use of Plaquenil HM MAMMOGRAPHY Routine 11/07/2021 from Last 3 Months or Most Recently Relevant to Health Maintenance Results * Protein/Creatinine Ratio, Random Urine, Total (06/29/2025 8:55 AM EST) Total Protein/Creatinine Ratio, Urine 0.06 <0.15 06/29/2025 11:47 AM [facility] Comment:Ratios <0.2 reflect insignificant protein excretion. Total Protein, Urine 5.5 <=13.5 mg/dL 06/29/2025 11:47 AM [facility] Creatinine, Urine 92 mg/dL 025 11:47 AM [facility] Urine (Urine, Voided) Non-Blood Collection / Unknown 06/29/2025 8:55 AM EST 06/29/2025 8:55 AM EST [facility] - 06/29/2025 11:47 AM EST The reference interval(s) are unavailable for this specimen type. Comparison of this result with other laboratory results, such as the concentration in the blood, serum, or plasma, is recommended. The test result should be integrated into the clinical context for interpretation. us Kortney Hicks MD LAB URINE ORDERABLES Fin al Result [facility] [address] [place] [address] * (ABNORMAL) Comprehensive Metabolic Panel (CMP) (06/29/2025 8:41 AM EST) Sodium 141 136 - 145 mmol/L 06/29/2025 11:49 AM [facility] Potassium 4.0 3.4 - 5.1 mmol/L 06/29/2025 11:49 AM [facility] Chloride 103 98 - 107 mmol/L 06/29/2025 11:49 AM [facility] CO2 32(H) 20 - 31 mmol/L 06/29/2025 11:49 AM [facility] Anion Gap 6 3 - 17 mmol/L 06/29/2025 11:49 AM [facility] BUN 16 6 - 23 mg/dL 06/29/2025 11:49 AM [facility] Creatinine 0.70 0.50 - 1.00 mg/dL 06/29/2025 11:49 AM [facility] eGFR 100 >59 mL/min/1.7 3m2 06/29/2025 11:49 AM [facility] Comment:Estimated glomerular filtration rate calculated using the CKD-EPI refit equation. Glucose 87 70 - 99 mg/dL 06/29/2025 11:49 AM [facility] Calcium 9.6 8.5 - 10.5 mg/dL 06/29/2025 11:49 AM [facility] AST 25 <33 U/L 06/29/2025 11:49 AM [facility] ALT 18 <34 U/L 06/29/2025 11:49 AM [facility] Alkaline Phosphatase 115 40 - 130 U/L 06/29/2025 11:49 AM [facility] Bilirubin, Total 0.4 0.0 - 1.2 mg/dL 06/29/2025 11:49 AM [facility] Total Protein 7.0 6.4 - 8.3 g/dL 06/29/2025 11:49 AM [facility] Albumin 4.3 3.5 - 5.2 g/dL 06/29/2025 11:49 AM [facility] Globulin 2.7 1.9 - 4.1 g/dL 06/29/2025 11:49 AM [facility] Blood (Blood) Venipuncture / Unknown 06/29/2025 8:41 AM EST 06/29/2025 8:41 AM EST us Kortney Hicks MD LAB BLOOD BKR ORDERABLES Final Result Performing Organization Address City/State/[facility] Co de Phone Number [facility] [address] [place] [address] * (ABNORMAL) CBC and Differential (06/29/2025 8:41 AM EST) WBC 3.91(L) 4.00 - 11.00 K/uL 06/29/2025 11:16 AM [facility] RBC 4.00 4.00 - 5.20 M/uL 06/29/2025 11:16 AM [facility] Hemoglobin 13.0 12.0 - 16.0 g/dL 06/29/2025 11:16 AM [facility] Hematocrit 38.6 36.0 - 46.0 % 06/29/2025 11:16 AM [facility] MCV 96.5 80.0 - 100.0 fL 06/29/2025 11:16 AM [facility] MCH 32.5(H) 27.0 - 31.0 pg 06/29/2025 11:16 AM [facility] MCHC 33.7 32.0 - 36.0 g/dL 06/29/2025 11:16 AM [facility] MPV 11.7 8.4 - 12.0 fL 06/29/2025 11:16 AM [facility] RDW-CV 11.9 11.5 - 14.5 % 06/29/2025 11:16 AM [facility] PLT 211 150 - 450 K/uL 06/29/2025 11:16 AM [facility] Neutrophils 50.0 % 06/29/2025 11:16 AM [facility] Lymphocytes 37.9 % 06/29/2025 11:16 AM [facility] Monocytes 8.2 % 06/29/2025 11:16 AM [facility] Eosinophils 2.3 % 06/29/2025 11:16 AM [facility] Basophils 1.3 % 06/29/2025 11:16 AM [facility] Imm Grans 0.3 % 06/29/2025 11:16 AM [facility] NRBC 0.0 <=0.0 /100 WBCs 06/29/2025 11:16 AM [facility] Absolute Neutrophils 1.96 1.92 - 7.60 K/uL 06/29/2025 11:16 AM [facility] Absolute Lymphocytes 1.48 0.72 - 4.10 K/uL 06/29/2025 11:16 AM [facility] Absolute Monocytes 0.32 0.16 - 1.10 K/uL 06/29/2025 11:16 AM [facility] Absolute Eosinophils 0.09 0.00 - 0.50 K/uL 06/29/2025 11:16 AM [facility] Absolute Basophils 0.05 0.00 - 0.15 K/uL 06/29/2025 11:16 AM [facility] Absolute Imm Grans 0.01 0.00 - 0.09 K/uL 06/29/2025 11:16 AM [facility] Absolute NRBC 0.00 <=0.00 K cells/uL 06/29/2025 11:16 AM [facility] Absolute Neutrophils 1.96 1.92 - 7.60 K/uL 06/29/2025 11:16 AM [facility] Comment:Automated cell count . Manual ANC may differ if performed. Diff Type Auto 06/29/2025 11:16 AM [facility] Blood (Blood) Venipuncture / Unknown 06/29/2025 8:41 AM EST 06/29/2025 8:41 AM EST us Kortney CunninghamTerrie MD LAB BLOOD BKR ORDERABLES Final Result Performing Organization Address City/[facility]/ZIP Co de Phone Number [address] [address] * Double-Stranded DNA Antibodies (06/29/2025 8:41 AM EST) Double Stranded DNA Negative at 1:10 Negative at 1:10 06/30/2025 1:56 PM EST [facility] Blood (Blood) Venipuncture / Unknown 06/29/2025 8:41 AM EST 06/29/2025 8:41 AM EST us Kortney Hicks MD LAB BLOOD BKR ORDERABLES Final Result Performing Organization Address [facility] Co de Phone Number [address] [address] * Erythrocyte Sedimentation Rate (ESR) (06/29/2025 8:41 AM EST) ESR <1 0 - 30 mm/h 06/29/2025 11:30 AM EST [facility] Blood (Blood) Venipuncture / Unknown 06/29/2025 8:41 AM EST 06/29/2025 8:41 AM EST us Kortney Hicks MD LAB BLOOD BKR ORDERABLES Final Result Performing Organization Address [facility] Co de Phone Number [address] [address] * Complement C3 (06/29/2025 8:41 AM EST) C3 119 81 - 157 mg/dl 06/30/2025 9:18 AM EST [facility] Blood (Blood) Venipuncture / Unknown 06/29/2025 8:41 AM EST 06/29/2025 8:41 AM EST us Kortney Hicks MD LAB BLOOD BKR ORDERABLES Final Result [address] [address] * Complement C4 (06/29/2025 8:41 AM EST) C4 14 12 - 39 mg/dL 06/30/2025 9:18 AM EST [facility] Blood (Blood) Venipuncture / Unknown 06/29/2025 8:41 AM EST 06/29/2025 8:41 AM EST us Kortney Hicks MD LAB BLOOD BKR ORDERABLES Final Result Performing Organization Address [facility] Co de Phone Number [address] [address] * C-Reactive Protein (CRP) (06/29/2025 8:41 AM EST) C Reactive Protein <3.0 <10.0 mg/L 06/29/2025 11:49 AM EST [facility] Comment:NOTE: This reference range is for the evaluation of inflammation. Order CRP, High Sensitivity for cardiac risk status evaluation. Blood (Blood) Venipuncture / Unknown 06/29/2025 8:41 AM EST 06/29/2025 8:41 AM EST us Kortney Hicks MD LAB BLOOD BKR ORDERABLES Final Result Performing Organization Address [facility] Co de Phone Number [address] [address] * Creatine Kinase (CK) (06/29/2025 8:41 AM EST) Creatine Kinase (CK) 65 26 - 192 U/L 06/29/2025 11:49 AM EST [facility] Blood (Blood) Venipuncture / Unknown 06/29/2025 8:41 AM EST 06/29/2025 8:41 AM EST us Kortney Hicks MD LAB BLOOD BKR ORDERABLES Final Result [facility] [address] [place] [address] * HM MAMMOGRAPHY FOR RESULT ENTRY ONLY (11/07/2021) us Historical Provider MD HEALTH MAINTENANCE Final Result from Last 3 Months or Most Recently Relevant to Health Maintenance Insurance [facility] MEDICARE PART A & B [facility] MEDICARE PART A & B [facility] Member Subscriber Plan / Payer (Ef fective 2021-Present) Name:Rodger Marlen Relation to Subscriber:Self Name:Rodger Marlen Payer ID:[id number] Group ID:Not on file Type:Medicaid Address: [address] [id number] MEDICARE PART A & B [facility] MED[facility] PART A & B [facility] MEDICARE PART A & B [facility] MEDICARE PART A & B [facility] Care Teams Brush Clearing Laborer Relationship Specialty Start Date End Date Amador Mackenzie MD [address] [place] [id number] PCP - General Family Medicine 05/18/20 Additional Source Comments The information contained in this document represents components of the legal health record. It is not the complete legal health record.[facility]
--- OUTSIDE RECORDS SUMMARY | 2025-07-01 09:08 | XMS_ITS | Encounter Summary ---
Author Organization [facility] Address [address] [place] [phone] Phone Care Team Providers Care Can Filling And Closing Machine Tender Name Role Phone Amador Mackenzie MD Primary Care Provider + Encounter Details Date Type Department Care Team (Late st Contact Info) Description 09/25/2023 Ancillary Orders [facility],Outside Imaging [address] [place] [address] System, Provider Not In, PhD [address] [address] Social History Tobacco Use Types Packs/Day Years Used Date Smoking Tobacco: Never Smokeless Tobacco: Never Education Answer Date Recorded Are you interested [...] Description 07/06/2025 8:30 AM EST Office Visit [facility] Rheumatology [address] [place] [address] Kortney Hciks MD [address] [facility], [address] [place] [address] [email or web address] documented as of this encounter Results * DXA Outside (No Interpretation) (01/25/2023 12:00 AM EDT) Narrative SYSTEMGENERATED, DOCUMENTATION - 09/25/2023 1:32 PM EST This study is for PACS storage only and not for interpretation. us Provider Not In System PhD IMG OUTSIDE IMAGING W /OUT INTERPRETATION Final Result documented in this encounter Visit Diagnoses Not on filedocumented in this encounter Care Teams Can Filling And Closing Machine Tender Relationship Specialty Start Date End Date Amador Mackenzie MD [address] [place] [phone] PCP - General Family Medicine 05/18/20 documented as of this encounter Additional Source Comments The information contained in this document represents components of the legal health record. It is not the complete legal health record.[facility]
== END 2025-07-01 16:04 | disposition home or self-care (01) ==
LOC: HO.HSM 08:47
PROVIDERS: PCP Family Medicine; Visit Provider Psychiatry & Neurology Neurology
DX: R55 Syncope and collapse (principal); G43.909 Migraine, unspecified, not intractable, without status migrainosus
CPT/HCPCS: 99214

== ENCOUNTER → 2025-07-01 08:47 | Outpatient (BNVA) | payer MEDICARE, OTHER, MEDICAID, SELFPAY | PROVIDERS: PCP Family Medicine; Visit Provider Psychiatry & Neurology Neurology | DX: G43.909 Migraine, unspecified, not intractable, without status migrainosus (principal); R55 Syncope and collapse; M35.00 Sjogren syndrome, unspecified; G47.33 Obstructive sleep apnea (adult) (pediatric); Z99.89 Dependence on other enabling machines and devices | CPT/HCPCS: 99212 ==